=== PATIENT | female | born 1970 | race Caucasian/White ===

== ENCOUNTER 2018-05-22 17:59 | Inpatient (IN) | payer OTHER ==
[~2018-05-22] VITALS: Ht 172.7 cm; Wt 75.3 kg
--- OUTSIDE RECORDS SUMMARY | 2018-05-22 18:02 | XMS REPORT | Continuity of Care Document ---
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 No 04/07/18 6:54pm Chief Complaint and Reason for Visit Chief Complaint Altered Mental Status Reason for Visit Hypoglycemia Altered mental status Pneumonia Problems Medical Problem Onset Date Status Fracture of left radius and ulna Unknown Acute Sprain of right knee Unknown Acute Traumatic hematoma of right knee Unknown Acute Left arm swelling Unknown Stage I decubitus ulcer and pressure area Unknown Past Problems Medical Problem Onset Date Status DKA (diabetic ketoacidoses) Unknown Acute Hypoglycemia Unknown Acute IDDM (insulin dependent diabetes mellitus) Unknown Acute Hypochromic microcytic anemia Unknown Acute Hypoglycemia Unknown Resolved DKA (diabetic ketoacidoses) Unknown Acute IDDM (insulin dependent diabetes mellitus) Unknown Acute DKA (diabetic ketoacidoses) Unknown Acute Hyperglycemia Unknown Acute Hypoglycemia Unknown Acute Altered mental status Unknown Acute Pneumonia Unknown Acute Medications Current Home Medications Medication Dose Units Route Directions Days Qty Instructions Start Date Insulin Human Isoph/Insulin Regular (Novolin 70/30 (10 Ml Vial)) 10 Ml Vial 35 Unit Subcutaneous Twice A Day 1 Vial Insulin Human Regular (Humulin-R U-100 (10 Ml Vial)) 100 Unit/Ml Soln Unknown Dose Subcutaneous Sliding Scale 1 Vial Past Home Medications Medication Directions Ordered Status Acetaminophen/Codeine Phosphate (Tylenol #3) 1 Tab Tab, 1-2 Tab Oral Every 6 Hours 12/12/14 Discontinued Azithromycin (Zithromax) 250 Mg Tab, 250 Mg Oral Daily Discontinued Cephalexin (Keflex) 250 Mg Cap, 250 Mg Oral Every 8 Hours 12/12/14 Discontinued Ibuprofen (Advil) 200 Mg Tab, 200 Mg Oral As Needed Discontinued Insulin Detemir (Levemir Inj) 100 U/Ml Vial, 25 Unit Subcutaneous Bedtime Discontinued Insulin Glargine (Lantus Inj) 100 Unit/Ml Soln, 50 Unit Subcutaneous Bedtime Discontinued Insulin Human Isoph/Insulin Regular (Novolin 70/30 (10 Ml Vial)) 10 Ml Vial, 50 Unit Subcutaneous Twice A Day Discontinued Insulin Human Isoph/Insulin Regular (Humulin 70/30 (3 Ml Vial)) 100 Unit/Ml Susp, 40 UnitSubcutaneous Twice A Day Discontinued Insulin Human Regular (Novolin-R (10 Ml Vial)) 100 U/Ml Vial, 28 Unit Subcutaneous Daily Before Breakfast Discontinued Insulin Human Regular (Novolin-R (10 Ml Vial)) 100 U/Ml Vial, 20 Unit Subcutaneous Daily Before Dinner Discontinued Insulin Human Regular (Novolin-R (10 Ml Vial)) 100 U/Ml Vial, 50 Unit Subcutaneous Twice A Day Discontinued Insulin Human Regular (Novolin-R (10 Ml Vial)) 100 Unit/Ml Soln, 15 Unit Subcutaneous Twice A Day Discontinued Multivitamins Therapeutic (Theragenerix, Theragran) 1 Tab Tablet, 1 Tab Oral Daily Discontinued Social History Social History Problem Response Recorded Date/Time Onset Date Status Hx Tobacco Use No 04/07/2018 6:54pm Not Applicable Not Applicable Smoking Status Start Date Stop Date Never Smoker Hospital Discharge Instructions No hospital discharge instruction information available. Plan of Care Discharge Date 04/07/18 7:39pm Disposition SHORT TERM ACUTE HOSP 02 Condition at Discharge Critical Forms Provided Procedures & Tests Performed Work/School Release Prescriptions See Medication Section Referrals MARA FRANCIS MD Address: [address] [place] [id number] Note: Functional Status Query Response Date Recorded Onset Within the Last 7 Days Cognitive Decline Problem Comprehending Decline in ADL Decline in Funct Mobility April 07, 2018 6:54pm Allergies, Adverse Reactions, Alerts Allergen Type Severity Reaction Status Last Updated Sulfonamide Allergy Unknown Active 01/06/13 Immunizations Query Response on File Recorded Date/Time HX of Pneumococcal Vaccine No 04/07/18 6:54pm Date Pneumovax Given 08/05/16 9:58am HX of Influenza Vaccine No 04/07/18 6:54pm Date Influenza Given 08/201104/07/18 6:54pm Tetanus Status Unknown 04/07/18 6:54pm Hx Hepatitis A Vaccination Not Vaccinated 08/02/16 10:02am Hx Hepatitis B Vaccination None 08/02/16 10:02am Vital Signs Acute Vital Signs Vital Response Date/Time Temperature (Fahrenheit) 100.2 degrees F (97.6 - 99.5) 04/07/2018 7:53pm Pulse Rate (adult) 107 bpm (60 - 100) 04/07/2018 7:18pm Pulse Rate 107 bpm 04/07/2018 7:53pm Respiratory Rate 16 breaths per minute (12 - 24) 04/07/2018 7:18pm Respiratory Rate 16 breaths per minute 04/07/2018 7:53pm Blood Pressure Systolic 105 mm Hg (100 - 140) 04/07/2018 7:18pm Blood Pressure Systolic 105 mm Hg 04/07/2018 7:53pm Blood Pressure Diastolic 63 mm Hg (60 - 90) 04/07/2018 7:18pm Blood Pressure Diastolic 63 mm Hg 04/07/2018 7:53pm Height 5 ft 7 in 04/07/2018 4:56pm Weight 165 lb 04/07/2018 4:56pm Body Mass Index 25.8 kg/m^2 04/07/2018 4:56pm Results Laboratory Results Test Name Result Units Flags Reference Collection Date/Time Result Date/Time Comments White Blood Count 17.8 10*3/uL H 4.5-11.5 04/07/2018 5:45pm 04/07/2018 5:56pm Red Blood Count 3.39 10*6/uL L 3.8-5.1 04/07/2018 5:45pm 04/07/2018 5:56pm Hemoglobin 7.2 g/dL L 12.0-15.2 04/07/2018 5:45pm 04/07/2018 5:56pm Hematocrit 24.2 % L 34.0-45.5 04/07/2018 5:45pm 04/07/2018 5:56pm Mean Corpuscular Volume 71.4 fL L 80-94 04/07/2018 5:45pm 04/07/2018 5:56pm Mean Corpuscular Hemoglobin 21.2 pg L 27.0-33.0 04/07/2018 5:45pm 04/07/2018 5:56pm Mean Corpuscular Hemoglobin Concent 29.8 g/dL L 33.0-37.0 04/07/2018 5:45pm 04/07/2018 5:56pm Red Cell Distribution Width 22.4 % H 10.7-14.5 04/07/2018 5:45pm 04/07/2018 5:56pm Platelet Count 808 10*3/uL H 150-450 04/07/2018 5:45pm 04/07/2018 5:56pm Mean Platelet Volume 7.9 fL 5.7-10.7 04/07/2018 5:45pm 04/07/2018 5:56pm Manual Differential ----- 04/07/2018 5:45pm 04/07/2018 5:56pm Neutrophils % (Manual) 88 % H 42-75 04/07/2018 5:45pm 04/07/2018 6:12pm Band Neutrophils % (Manual) 7 % 5-11 04/07/2018 5:45pm 04/07/2018 6:12pm Lymphocytes % (Manual) 4 % L 21-51 04/07/2018 5:45pm 04/07/2018 6:12pm Monocytes % (Manual) 1 % 1-9 04/07/2018 5:45pm 04/07/2018 6:12pm Platelet Estimate Increased 04/07/2018 5:45pm 04/07/2018 6:12pm Anisocytosis 2+ 04/07/2018 5:45pm 04/07/2018 6:12pm Microcytosis 2+ 04/07/2018 5:45pm 04/07/2018 6:12pm Hypochromasia 2+ 04/07/2018 5:45pm 04/07/2018 6:12pm Urine Source URINE 04/07/2018 5:00pm 04/07/2018 5:49pm Urine Color Lt Hunter Yel-Shalini * 04/07/2018 5:00pm 04/07/2018 5:53pm Urine Appearance Light Turbid Clear * 04/07/2018 5:00pm 04/07/2018 5:53pm Urine pH 6.5 5.0-8.0 04/07/2018 5:00pm 04/07/2018 5:53pm Urine Specific [place] 1.007 1.005-1.030 04/07/2018 5:00pm 04/07/2018 5:53pm Urine Protein 10 mg/dL H Negative * 04/07/2018 5:00pm 04/07/2018 5:53pm Urine Glucose (UA) Negative mg/dL Negative * 04/07/2018 5:00pm 04/07/2018 5:53pm Urine Ketones Negative mg/dL Negative * 04/07/2018 5:00pm 04/07/2018 5:53pm Urine Occult Blood 3+ H Negative * 04/07/2018 5:00pm 04/07/2018 5:53pm Urine Nitrite Negative Negative 04/07/2018 5:00pm 04/07/2018 5:53pm Urine Bilirubin Negative mg/dL Negative 04/07/2018 5:00pm 04/07/2018 5:53pm Urine Urobilinogen Negative mg/dL 0.0-1.0 04/07/2018 5:00pm 04/07/2018 5:53pm Urine Leukocyte Esterase 500 Ho/uL H Negative 04/07/2018 5:00pm 04/07/2018 5:53pm Urine RBC >40 /HPF H 0-2 04/07/2018 5:00pm 04/07/2018 6:08pm Urine WBC >50 /HPF H 0-5 04/07/2018 5:00pm 04/07/2018 6:08pm Urine Epithelial Cells None Seen /HPF Few 04/07/2018 5:00pm 04/07/2018 6:08pm Urine Crystals None Seen /HPF None * 04/07/2018 5:00pm 04/07/2018 6:08pm Urine Bacteria Packed /HPF A None 04/07/2018 5:00pm 04/07/2018 6:08pm Urine Casts None Seen /LPF None * 04/07/2018 5:00pm 04/07/2018 6:08pm Urine Yeast None Seen /HPF None 04/07/2018 5:00pm 04/07/2018 6:08pm Urinalysis Comment * * 04/07/2018 5:00pm 04/07/2018 5:53pm Ref Range=* Clinical evaluation required. Urine Culture Indicated To follow A 04/07/2018 5:00pm 04/07/2018 6:08pm Sodium Level 139 mmol/L 136-145 04/07/2018 5:00pm 04/07/2018 5:41pm Potassium Level 4.9 mmol/L 3.5-5.1 04/07/2018 5:00pm 04/07/2018 5:41pm Chloride Level 102 mmol/L 98-107 04/07/2018 5:00pm 04/07/2018 5:41pm Carbon Dioxide Level 23 mmol/L 21-32 04/07/2018 5:00pm 04/07/2018 5:41pm Anion Gap 19 H 5-14 04/07/2018 5:00pm 04/07/2018 5:41pm Blood Urea Nitrogen 15 mg/dL 6-20 04/07/2018 5:00pm 04/07/2018 5:41pm Creatinine 0.9 mg/dL 0.6-1.3 04/07/2018 5:00pm 04/07/2018 5:41pm Estimat Glomerular Filtration Rate 72 L 73-125 04/07/2018 5:00pm 04/07/2018 5:41pm Stages of Patients with Estimated GFR Known Kidney Disease (ml/min/1.73 sq.meters) Stage 1 - Kidney damage w/normal 90 mL/min or greater or increased GFR Stage 2 - Kidney disease w/mildly 60-89 mL/min decreased GFR Stage 3 - Moderately decreased GFR 30-59 mL/min Stage 4 - Severely decreased GFR 15-29 mL/min Stage 5 - Kidney failure 14 mL/min or less To estimate the GFR for Americans, multiply the result provided by 1.21. BUN/Creatinine Ratio 17 04/07/2018 5:00pm 04/07/2018 5:41pm Glucose Level 73 mg/dL 60-100 04/07/2018 5:00pm 04/07/2018 5:41pm Calculated Osmolality 277 mOsm/kg 04/07/2018 5:00pm 04/07/2018 5:41pm Calcium Level 9.0 mg/dL 8.5-10.1 04/07/2018 5:00pm 04/07/2018 5:41pm B-Type Natriuretic Peptide 482 pg/mL H 0-99 04/07/2018 5:00pm 04/07/2018 6:05pm A cutoff of 100 pg/ml has been demonstrated to provide the maximal combination of sensitivity, specificity, and negative predictive value for contributing to the diagnosis of congestive heart failure. A BNP value greater than or equal to 100 pg/ml is consistent with a diagnosis of CHF in the appropriate clinical setting. Thyroid Stimulating Hormone (TSH) 2.08 uIU/mL 0.40-4.20 04/07/2018 5:00pm 04/07/2018 5:41pm Bedside Troponin I 0.00 ng/mL 0.00-0.07 04/07/2018 4:51pm 04/07/2018 5:02pm Bedside Lactic Acid Venous 3.93 mmol/L CH 0.50-2.20 04/07/2018 4:54pm 04/07/2018 5:00pm Critical value reported at bedside. POC testing performed at the bedside. Immediate notification of results given to nurse/physician at time of testing. Lactic Acid Comment Reprint/Called 04/07/2018 6:48pm 04/07/2018 6:50pm Reprint / Called to FRANCIE MONROE at 1849 on 04/07/18 by [id number]. Bedside Glucose 69 mg/dL 60-100 04/07/2018 7:14pm 04/07/2018 7:16pm FiO2 100 % 04/07/2018 4:53pm 04/07/2018 6:21pm Arterial Blood pH 7.56 CH 7.35-7.45 04/07/2018 4:53pm 04/07/2018 6:21pm Critical value: Called to at 181 on 04/07/18 by [id number]. Result read-back successful. Arterial Blood Partial Pressure CO2 25 mmHg L 35-45 04/07/2018 4:53pm 04/07/2018 6:21pm Arterial Blood Partial Pressure O2 171 mmHg CH 80-100 04/07/2018 4:53pm 04/07/2018 6:21pm Critical value: Called to at 1819 on 04/07/18 by [id number]. Result read-back successful. Arterial Blood HCO3 25 mmHg 22-26 04/07/2018 4:53pm 04/07/2018 6:21pm Arterial Blood Base Excess 1 mmol/L -2-2 04/07/2018 4:53pm 04/07/2018 6:21pm Arterial Blood Oxygen Saturation 100 % 90-100 04/07/2018 4:53pm 04/07/2018 6:21pm Oxygen Delivery Device NON REBREATHER 04/07/2018 4:53pm 04/07/2018 6:21pm Blood Gas Puncture Site Left Brachial 04/07/2018 4:53pm 04/07/2018 6:21pm Kostas Test Pass 04/07/2018 4:53pm 04/07/2018 6:21pm Procedures Procedure Status Date Provider(s) Computed tomography of head or brain without contrast Completed 04/07/18 PRINCESS PETTY MD X-ray of chest, single view Completed 04/07/18 PRINCESS PETTY MD ECG (electrocardiogram) Active 04/07/18 PRINCESS PETTY MD X-ray of chest, single view Completed 04/07/18 PRINCESS PETTY MD Arterial puncture Completed 04/07/18 PRINCESS PETTY MD Encounters Encounter Location Arrival/Admit Date Discharge/Depart Date Attending Provider Departed Emergency Room [facility] 04/07/18 4:38pm 04/07/18 7:39pm CALI SAUL MD Recent Diagnosis Hypoglycemia Altered mental status
--- OUTSIDE RECORDS SUMMARY | 2018-05-22 18:02 | XMS REPORT ---
Author Author [facility] Address Unknown Phone Unavailable Care Team Providers Care Dermatologist Managing Partner Name Role Phone BLAS BLACK Unavailable Unavailable Problems This patient has no known problems. Allergies, Adverse Reactions, Alerts This patient has no known allergies or adverse reactions. Medications This patient has no known medications. Results Test Description Test Time Test Comments Text Results Atomic Results Result Comments CULTURE, BLOOD 2017-11-10 08:20:00 To start 15mins after 1st culture Specimen: BloodCollected: 11/04/2017 20:15 Status: Final Last Updated: 11/10/2017 08:19 (1) To start 15mins after 1st culture Culture Result (Final) (Final) No Growth After 5 Days CULTURE, BLOOD 2017-11-10 08:20:00 Specimen: BloodCollected: 11/04/2017 20:07 Status: Final Last Updated: 11/10/2017 08:19 Culture Result (Final) (Final) No Growth After 5 Days CULTURE, URINE 2017-11-07 07:25:00 Specimen: Urine SpecimensCollected: 11/05/2017 00:50 Status: Final Last Updated: 11/06/2017 22:06 Culture Result (Final) (Final) >100,000 cc/mL Streptococcus species Many Mixed Body Gracie Isolated Isolate (Final) (Final) Streptococcus agalactiae Ampicillin <=0.25 S Penicillin <=0.06 S Ceftriaxone <=0.12 S Clindamycin <=0.25 S ICR Negative - Levofloxacin 1 S Linezolid <=2 S Moxifloxacin 0.12 S Tetracycline >=16 R Tigecycline <=0.06 S Vancomycin 0.5 S CBC WITH AUTO DIFF 2017-11-06 05:45:00 WBC (test code=WBC) 6.02 10\\S\\3/ul 4.80-10.80 RBC (test code=RBC) 3.61 10\\S\\6/ul 4.20-5.40 Hemoglobin (test code=HGB) 7.2 gm/dl 12.0-14.0 Hematocrit (test code=HCT) 25.9 % 37.0-47.0 MCV (test code=MCV) 71.7 fL 81.0-99.0 MCH (test code=MCH) 19.9 pg 27.0-31.0 MCHC (test code=MCHC) 27.8 gm/dl 33.0-37.0 RDW (test code=RDWVC) 21.0 % 11.5-14.5 Platelet (test code=PLT) 281 10\\S\\3/ul 130-400 MPV (test code=MPV) 9.6 fL 7.4-10.4 "NOT MEASURED" RESULTS ARE DISPLAYED WHEN THE INSTRUMENT HAS A SUPPRESSED OR UNREPORTABLE RESULT. THIS WILL MOST OFTEN HAPPEN WITH THE MPV WHEN THERE IS AN ABNORMAL PLATELET DISTRIBUTION DUE TO A CR ITICAL LOW VALUE OR PLATELET CLUMPING. THE RDW MAY BE SUPPRESSED IF THERE ARE MULTIPLE PEAKS PRESENT ON THE RBC HISTOGRAM. IN THIS CASE, A MANUAL REVIEW OF THE SLIDE WILL BE PERFORMED, AND RBC MORPHOLOGY WILL BE NOTED ON THE REPORT. NE% (test code=NE) 55.2 % 42.0-75.0 LY% (test code=LY) 30.1 % 13.0-42.0 MO% (test code=MO) 11.6 % 4.0-14.0 EO% (test code=EO) 1.8 % 1.0-3.0 BA% (test code=BA) 1.0 % 1.0-3.0 IG% (test code=IG%) 0.3 % 0.0-0.4 Critical values were called to John Mckeon\\ICU by [id number] on 11/06/2017 05:45 AM. Results were read back by John Mckeon\\ICU. [id number] 05:41:00* Test Item Value Reference Range Comments Glucose (test code=GLU) 131 mg/dl 75-110 BUN (test code=BUN) 6.0 mg/dl 6.0-17.0 Creatinine (test code=CREA) 0.5 mg/dl 0.4-1.2 Sodium (test code=NA) 141 mmol/l 137-145 Potassium (test code=K) 3.7 mmol/l 3.5-5.0 Chloride (test code=CL) 113 mmol/l 98-107 CO2 (test code=CO2) 19 mmol/l 22-30 Calcium (test code=CALC) 8.7 mg/dl 8.4-10.2 EGFR if (test code=EGFRAA) >60 mL/min/1.73m\\S\\2 EGFR if Non- (test code=EGFRNA) >60 mL/min/1.73m\\S\\2 Estimated Glomerular Filtration Rate (eGFR) Reference Intervals Decision Points for 18 years and older and average body mass: >=60 Does not exclude kidney disease. 30 - 59 Suggests moderate chronic kidney disease and indicates the need for further investigation including assessment of proteinuria and cardiovascular factors. < 30 Usually indicates a need for referral for assessment and management of chronic kidney failure. [id number] 12:32:00* Test Item Value Reference Range Comments Glucose (test code=GLU) 149 mg/dl 75-110 BUN (test code=BUN) 7.0 mg/dl 6.0-17.0 Creatinine (test code=CREA) 0.5 mg/dl 0.4-1.2 Sodium (test code=NA) 142 mmol/l 137-145 Potassium (test code=K) 3.8 mmol/l 3.5-5.0 Chloride (test code=CL) 114 mmol/l 98-107 CO2 (test code=CO2) 16 mmol/l 22-30 Calcium (test code=CALC) 8.3 mg/dl 8.4-10.2 EGFR if (test code=EGFRAA) >60 mL/min/1.73m\\S\\2 EGFR if Non- (test code=EGFRNA) >60 mL/min/1.73m\\S\\2 Estimated Glomerular Filtration Rate (eGFR) Reference Intervals Decision Points for 18 years and older and average body mass: >=60 Does not exclude kidney disease. 30 - 59 Suggests moderate chronic kidney disease and indicates the need for further investigation including assessment of proteinuria and cardiovascular factors. < 30 Usually indicates a need for referral for assessment and management of chronic kidney failure. [id number] 10:03:00* Test Item Value Reference Range Comments Glucose (test code=GLU) 158 mg/dl 75-110 BUN (test code=BUN) 8.0 mg/dl 6.0-17.0 Creatinine (test code=CREA) 0.5 mg/dl 0.4-1.2 Sodium (test code=NA) 140 mmol/l 137-145 Potassium (test code=K) 4.0 mmol/l 3.5-5.0 Chloride (test code=CL) 114 mmol/l 98-107 CO2 (test code=CO2) 14 mmol/l 22-30 Calcium (test code=CALC) 8.1 mg/dl 8.4-10.2 EGFR if (test code=EGFRAA) >60 mL/min/1.73m\\S\\2 EGFR if Non- (test code=EGFRNA) >60 mL/min/1.73m\\S\\2 Estimated Glomerular Filtration Rate (eGFR) Reference Intervals Decision Points for 18 years and older and average body mass: >=60 Does not exclude kidney disease. 30 - 59 Suggests moderate chronic kidney disease and indicates the need for further investigation including assessment of proteinuria and cardiovascular factors. < 30 Usually indicates a need for referral for assessment and management of chronic kidney failure. [id number] 08:01:00* Test Item Value Reference Range Comments Glucose (test code=GLU) 142 mg/dl 75-110 BUN (test code=BUN) 9.0 mg/dl 6.0-17.0 Creatinine (test code=CREA) 0.5 mg/dl 0.4-1.2 Sodium (test code=NA) 140 mmol/l 137-145 Potassium (test code=K) 4.0 mmol/l 3.5-5.0 Chloride (test code=CL) 115 mmol/l 98-107 CO2 (test code=CO2) 14 mmol/l 22-30 Calcium (test code=CALC) 8.2 mg/dl 8.4-10.2 EGFR if (test code=EGFRAA) >60 mL/min/1.73m\\S\\2 EGFR if Non- (test code=EGFRNA) >60 mL/min/1.73m\\S\\2 Estimated Glomerular Filtration Rate (eGFR) Reference Intervals Decision Points for 18 years and older and average body mass: >=60 Does not exclude kidney disease. 30 - 59 Suggests moderate chronic kidney disease and indicates the need for further investigation including assessment of proteinuria and cardiovascular factors. < 30 Usually indicates a need for referral for assessment and management of chronic kidney failure. CBC WITH AUTO [id number] 06:53:00* Test Item Value Reference Range Comments WBC (test code=WBC) 7.61 10\\S\\3/ul 4.80-10.80 RBC (test code=RBC) 3.84 10\\S\\6/ul 4.20-5.40 Hemoglobin (test code=HGB) 7.5 gm/dl 12.0-14.0 Hematocrit (test code=HCT) 27.3 % 37.0-47.0 MCV (test code=MCV) 71.1 fL 81.0-99.0 MCH (test code=MCH) 19.5 pg 27.0-31.0 MCHC (test code=MCHC) 27.5 gm/dl 33.0-37.0 RDW (test code=RDWVC) 20.4 % 11.5-14.5 Platelet (test code=PLT) 336 10\\S\\3/ul 130-400 MPV (test code=MPV) 9.4 fL 7.4-10.4 "NOT MEASURED" RESULTS ARE DISPLAYED WHEN THE INSTRUMENT HAS A SUPPRESSED OR UNREPORTABLE RESULT. THIS WILL MOST OFTEN HAPPEN WITH THE MPV WHEN THERE IS AN ABNORMAL PLATELET DISTRIBUTION DUE TO A CR ITICAL LOW VALUE OR PLATELET CLUMPING. THE RDW MAY BE SUPPRESSED IF THERE ARE MULTIPLE PEAKS PRESENT ON THE RBC HISTOGRAM. IN THIS CASE, A MANUAL REVIEW OF THE SLIDE WILL BE PERFORMED, AND RBC MORPHOLOGY WILL BE NOTED ON THE REPORT. NE% (test code=NE) 57.6 % 42.0-75.0 LY% (test code=LY) 29.4 % 13.0-42.0 MO% (test code=MO) 10.4 % 4.0-14.0 EO% (test code=EO) 1.1 % 1.0-3.0 BA% (test code=BA) 1.1 % 1.0-3.0 IG% (test code=IG%) 0.4 % 0.0-0.4 Critical values were called to Khushbu Teague RN@0652 11/05/17 by [id number] on 2017 06:53 AM. Results were read back by Khushbu Teague RN@0652 11/05/17. BMP 2017-11-05 06:38:00* Test Item Value Reference Range Comments Glucose (test code=GLU) 136 mg/dl 75-110 BUN (test code=BUN) 10.0 mg/dl 6.0-17.0 Creatinine (test code=CREA) 0.5 mg/dl 0.4-1.2 Sodium (test code=NA) 142 mmol/l 137-145 Potassium (test code=K) 3.8 mmol/l 3.5-5.0 Chloride (test code=CL) 117 mmol/l 98-107 CO2 (test code=CO2) 16 mmol/l 22-30 Calcium (test code=CALC) 8.2 mg/dl 8.4-10.2 EGFR if (test code=EGFRAA) >60 mL/min/1.73m\\S\\2 EGFR if Non- (test code=EGFRNA) >60 mL/min/1.73m\\S\\2 Estimated Glomerular Filtration Rate (eGFR) Reference Intervals Decision Points for 18 years and older and average body mass: >=60 Does not exclude kidney disease. 30 - 59 Suggests moderate chronic kidney disease and indicates the need for further investigation including assessment of proteinuria and cardiovascular factors. < 30 Usually indicates a need for referral for assessment and management of chronic kidney failure. [id number] 04:34:00* Test Item Value Reference Range Comments Glucose (test code=GLU) 173 mg/dl 75-110 BUN (test code=BUN) 10.0 mg/dl 6.0-17.0 Creatinine (test code=CREA) 0.6 mg/dl 0.4-1.2 Sodium (test code=NA) 142 mmol/l 137-145 Potassium (test code=K) 4.3 mmol/l 3.5-5.0 Chloride (test code=CL) 116 mmol/l 98-107 CO2 (test code=CO2) 13 mmol/l 22-30 Calcium (test code=CALC) 8.3 mg/dl 8.4-10.2 EGFR if (test code=EGFRAA) >60 mL/min/1.73m\\S\\2 EGFR if Non- (test code=EGFRNA) >60 mL/min/1.73m\\S\\2 Estimated Glomerular Filtration Rate (eGFR) Reference Intervals Decision Points for 18 years and older and average body mass: >=60 Does not exclude kidney disease. 30 - 59 Suggests moderate chronic kidney disease and indicates the need for further investigation including assessment of proteinuria and cardiovascular factors. < 30 Usually indicates a need for referral for assessment and management of chronic kidney failure. [id number] 02:00:00* Test Item Value Reference Range Comments Glucose (test code=GLU) 166 mg/dl 75-110 BUN (test code=BUN) 11.0 mg/dl 6.0-17.0 Creatinine (test code=CREA) 0.6 mg/dl 0.4-1.2 Sodium (test code=NA) 140 mmol/l 137-145 Potassium (test code=K) 4.5 mmol/l 3.5-5.0 Chloride (test code=CL) 116 mmol/l 98-107 CO2 (test code=CO2) 11 mmol/l 22-30 Calcium (test code=CALC) 8.5 mg/dl 8.4-10.2 EGFR if (test code=EGFRAA) >60 mL/min/1.73m\\S\\2 EGFR if Non- (test code=EGFRNA) >60 mL/min/1.73m\\S\\2 Estimated Glomerular Filtration Rate (eGFR) Reference Intervals Decision Points for 18 years and older and average body mass: >=60 Does not exclude kidney disease. 30 - 59 Suggests moderate chronic kidney disease and indicates the need for further investigation including assessment of proteinuria and cardiovascular factors. < 30 Usually indicates a need for referral for assessment and management of chronic kidney failure. URINALYSIS WITH [id number] 01:35:00* Test Item Value Reference Range Comments Color (test code=UCOLR) YELLOW Clarity (test code=UCLAR) CLEAR Glucose (test code=UGLUC) 500 NEGATIVE Bilirubin (test code=UBILI) MODERATE NEGATIVE Ketones (test code=UKET) >=80 NEGATIVE Specific [place] (test code=USPGR) 1.025 1.005-1.030 Blood (test code=UBLD) SMALL NEGATIVE PH (test code=UPH) 6.0 4.5-8.0 Protein (test code=UPROT) 30 NEGATIVE Urobilinogen (test code=U UROB) 0.2 >0.2 Nitrite (test code=UNITR) NEGATIVE NEGATIVE Leukocyte Esterase (test code=ULEUK) SMALL NEGATIVE WBC (test code=WBCUR) TNTC 0-5 RBC (test code=RBCUR) 10-20 0-5 Epithial Cells (test code=U EPI) 20-30 0-10 Mucous (test code=UMUC) Small None Seen Bacteria (test code=UBACT) 1+ None Seen,Trace [id number] 23:53:00* Test Item Value Reference Range Comments Glucose (test code=GLU) 148 mg/dl 75-110 BUN (test code=BUN) 12.0 mg/dl 6.0-17.0 Creatinine (test code=CREA) 0.6 mg/dl 0.4-1.2 Sodium (test code=NA) 141 mmol/l 137-145 Potassium (test code=K) 4.1 mmol/l 3.5-5.0 Chloride (test code=CL) 115 mmol/l 98-107 CO2 (test code=CO2) 10 mmol/l 22-30 Calcium (test code=CALC) 8.7 mg/dl 8.4-10.2 EGFR if (test code=EGFRAA) >60 mL/min/1.73m\\S\\2 EGFR if Non- (test code=EGFRNA) >60 mL/min/1.73m\\S\\2 Estimated Glomerular Filtration Rate (eGFR) Reference Intervals Decision Points for 18 years and older and average body mass: >=60 Does not exclude kidney disease. 30 - 59 Suggests moderate chronic kidney disease and indicates the need for further investigation including assessment of proteinuria and cardiovascular factors. < 30 Usually indicates a need for referral for assessment and management of chronic kidney failure. CBC WITH AUTO [id number] 21:32:00* Test Item Value Reference Range Comments WBC (test code=WBC) 12.51 10\\S\\3/ul 4.80-10.80 RBC (test code=RBC) 4.42 10\\S\\6/ul 4.20-5.40 Hemoglobin (test code=HGB) 8.5 gm/dl 12.0-14.0 Hematocrit (test code=HCT) 31.3 % 37.0-47.0 MCV (test code=MCV) 70.8 fL 81.0-99.0 MCH (test code=MCH) 19.2 pg 27.0-31.0 MCHC (test code=MCHC) 27.2 gm/dl 33.0-37.0 RDW (test code=RDWVC) 20.3 % 11.5-14.5 Platelet (test code=PLT) 479 10\\S\\3/ul 130-400 MPV (test code=MPV) 9.3 fL 7.4-10.4 "NOT MEASURED" RESULTS ARE DISPLAYED WHEN THE INSTRUMENT HAS A SUPPRESSED OR UNREPORTABLE RESULT. THIS WILL MOST OFTEN HAPPEN WITH THE MPV WHEN THERE IS AN ABNORMAL PLATELET DISTRIBUTION DUE TO A CR ITICAL LOW VALUE OR PLATELET CLUMPING. THE RDW MAY BE SUPPRESSED IF THERE ARE MULTIPLE PEAKS PRESENT ON THE RBC HISTOGRAM. IN THIS CASE, A MANUAL REVIEW OF THE SLIDE WILL BE PERFORMED, AND RBC MORPHOLOGY WILL BE NOTED ON THE REPORT. NE% (test code=NE) 79.7 % 42.0-75.0 LY% (test code=LY) 13.3 % 13.0-42.0 MO% (test code=MO) 5.8 % 4.0-14.0 EO% (test code=EO) 0.0 % 1.0-3.0 BA% (test code=BA) 0.6 % 1.0-3.0 IG% (test code=IG%) 0.6 % 0.0-0.4 RBC Morphology (test code=RBCMOR) Anisocytosis Microcytic 1+Polychromic Slight The value no value originally released by on ############### was changed to Anisocytosis Microcytic 1+ Polychromic Slight by [id number] on 11/04/2017 21:32 Platelet Morphology (test code=PLTMORPH) Increased platelets Giant platelets The value no value originally released by on ############### was changed to Increased platelets Giant platelets by [id number] on 11/04/2017 21:32 [id number] 21:32:00* Test Item Value Reference Range Comments aPTT (test code=PTT) 22.2 seconds 23.0-33.0 PT AND [id number] 21:32:00* Test Item Value Reference Range Comments Protime (test code=PT) 9.7 seconds 9.0-11.9 INR (test code=INR) 0.9 0.9-1.1 INR results are intended ONLY to monitor Oral Anticoagulant therapy in stablized patients. The INR Therapeutic Range is 2.0 - 3.0 Patients with a mechanical heart, the INR Range is 2.5 - 3.5 LIPASE, [id number] 21:23:00* Test Item Value Reference Range Comments Lipase (test code=LIPA) 42 U/L 8-223 TROPONIN-I [id number] 21:23:00* Test Item Value Reference Range Comments Troponin-I (test code=TROP) <0.012 ng/ml 0.000-0.034 The 99th Percentile URL is 0.034 ng/mL. The Joint Society of Cardiology/[place] College [employer] Card[employer] (ESC/ACC) and the National Academy of Clinical Biochemistry Standards of Laboratory Practices (NACB) recommends that the diagnosis of AMI includes the presence of clinical history suggestive of Acute Coronary Syndrome (ACS) and a maximum concentration of cardiac troponin exceeding the 99th percentile of a normal reference population [upper reference limit (URL)] on at least one occasion during the first 24 hours after the clinical event. MYOGLOBIN, [id number] 21:23:00* Test Item Value Reference Range Comments Myoglobin (test code=MICKIE) 36.1 ng/ml 0.0-61.5 [id number] 21:07:00* Test Item Value Reference Range Comments Glucose (test code=GLU) 147 mg/dl 75-110 BUN (test code=BUN) 13.0 mg/dl 6.0-17.0 Creatinine (test code=CREA) 0.7 mg/dl 0.4-1.2 Sodium (test code=NA) 140 mmol/l 137-145 Potassium (test code=K) 4.7 mmol/l 3.5-5.0 Chloride (test code=CL) 112 mmol/l 98-107 CO2 (test code=CO2) 9 mmol/l 22-30 Calcium (test code=CALC) 9.5 mg/dl 8.4-10.2 T Protein (test code=TP) 8.0 gm/dl 5.1-8.7 Albumin (test code=ALB) 4.2 gm/dl 3.5-4.6 A/G Ratio (test code=AGRAT) 1.1 % 1.1-2.2 AST (SGOT) (test code=AST) 15 U/L 11-36 ALT (SGPT) (test code=ALT) 15 U/L 11-40 Alkaline Phos (test code=ALKP) 94 U/L 47-114 Total Bilirubin (test code=TBIL) 0.3 mg/dl 0.2-1.2 Globulin (test code=GLOBU) 3.8 gm/dl 2.3-3.5 Calcium, Corrected (test code=CALCCORR) 9.3 mg/dl 8.4-10.2 Various formulas exist for corrected serum calcium results, each yielding different values. This corrected result was based on the formula: Corrected Calcium=SerumCalcium + [0.8 * ( 4 - SerumAlbumin)] EGFR if (test code=EGFRAA) >60 mL/min/1.73m\\S\\2 EGFR if Non- (test code=EGFRNA) >60 mL/min/1.73m\\S\\2 Estimated Glomerular Filtration Rate (eGFR) Reference Intervals Decision Points for 18 years and older and average body mass: >=60 Does not exclude kidney disease. 30 - 59 Suggests moderate chronic kidney disease and indicates the need for further investigation including assessment of proteinuria and cardiovascular factors. < 30 Usually indicates a need for referral for assessment and management of chronic kidney failure. Critical values were called to CHRITSIE MUNOZ RN ICU by [id number] on 11/04/2017 21:07 PM. Results were read back by CHRISTIE MUNOZ RN ICU. [id number] 21:07:00* Test Item Value Reference Range Comments Magnesium (test code=MG) 2.2 mg/dl 1.6-2.3 CORONARY [id number] 21:07:00* Test Item Value Reference Range Comments Triglycerides (test code=TRIG) 96 mg/dl 0-149 Trig. Interpretation Guide: Normal: < 150 mg/dl Borderline High: 150 - 199 mg/dl High: 200 - 499 mg/dl Very High: >=500 mg/dl Cholesterol (test code=CHOL) 177 mg/dl 0-198 HDL (test code=HDL) 70 mg/dl 35-86 dLDL (test code=DILDL) 98 mg/dl 0-99 Direct LDL Intrepretations: Optimal: <100 mg/dl Suspect: 100 - 129 mg/dl Borderline: 130 - 159 mg/dl High: 160 - 189 mg/dl Very High: >190 mg/dl Risk Factor (test code=RFACT) 2.5 0.0-4.4 Risk Factor Men Women Risk Factor 3.4 3.3 1/2 Average 5.0 4.4 Average 9.6 7.1 2X Average 24.0 11.0 3X Average vLDL (test code=VLDL) 19 mg/dl 20-40 GLYCOSALATED [id number] 21:01:00* Test Item Value Reference Range Comments Hemoglobin A1C (test code=GLYCO) 11.2 % 4.3-6.0 Mean Plasma Glucose (test code=MPG) 321 mg/dl 90-180 WHEN TEST RESULTS FOR A1C EXCEED 14.0, THE LINEAR LIMIT OF THE INSTRUMENT, THE CALCULATED RESULT FOR THE MEAN GLUCOSE IS NOT RELIABLE. LACTIC ACID [id number] 21:00:00* Test Item Value Reference Range Comments LACTATE (test code=LAC) 1.2 mmol/l 0.7-2.0 [id number] 21:00:00* Test Item Value Reference Range Comments CPK (test code=CPK) 48 U/L 30-135
--- OUTSIDE RECORDS SUMMARY | 2018-05-22 18:02 | XMS REPORT | Continuity of Care Document ---
Author Author [facility] Organization [facility] Address [address] [place] [address] ;ext= Care Team Providers Care Landscaper Name Role Phone TARSUSYSADE BLAS Admphys TARAPASADE, BLAS Attphys Hospital Admission Diagnosis Code Admission Diagnosis Date [id number] Ketoacidosis in type I diabetes mellitus Social History Element Description Code Description Smoking Status Code System Start Date End Date Smoking Status 704997252 Never smoker SNOMED-CT Problems * No data in the system Medications RxNorm Medication Dose Route Instructions Indications Start Date End Date Status 480847 Ciprofloxacin 500 MG Oral Tablet 500 milligram Oral orally every 12 hours (5 days) Active 8247342 insulin, isophane 35 unit Subcutaneous subcutaneously 2 times per day (administer 30-60 minutes before breakfast and supper;) Active novolin r sliding scale Subcutaneous subcutaneously before meals (pt unsure of sliding scale parameters) Active Allergies Code Code System Allergy Substance Type Reaction Severity Start Date End Date Status 73827 RXNorm Sulfa(Sulfonamide Antibiotics) Drug allergy Unknown Active Results Laboratory Results Order: BMP BASIC METABOLIC PANEL LOINC Test Result Flag Range Unit Date 1Glucose 131 H 75-110 mg/dl 11/06/2017 04:49 1BUN 6 6.0-17.0 mg/dl 11/06/2017 04:49 1Creatinine 0.5 0.4-1.2 mg/dl 11/06/2017 04:49 1Sodium 141 137-145 mmol/l 11/06/2017 04:49 1Potassium 3.7 3.5-5.0 mmol/l 11/06/2017 04:49 1Chloride 113 H 98-107 mmol/l 11/06/2017 04:49 1CO2 19 L 22-30 mmol/l 11/06/2017 04:49 1Calcium 8.7 8.4-10.2 mg/dl 11/06/2017 04:49 1EGFR if >60 mL/min/1.73m^2 11/06/2017 04:49 1EGFR if Non- >60 mL/min/1.73m^2 11/06/2017 04:49 Note: Estimated Glomerular Filtration Rate (eGFR) Reference Intervals Decision Points for 18 years and older and average body mass: >=60 Does not exclude kidney disease. 30 - 59 Suggests moderate chronic kidney disease and indicates the need for further investigation including assessment of proteinuria and cardiovascular factors. < 30 Usually indicates a need for referral for assessment and management of chronic kidney failure. * Performing Lab Footnotes:* [address] [place] [address] - [id number] - [address] [facility] [address] [place] [address] [place] - MD: DIRECTOR SINTIA SÁNCHEZ Order: CBC PLATELET AUTO DIFF LOINC Test Result Flag Range Unit Date 20992-3 1Leukocytes^^corrected for nucleated erythrocytes:NCnc:Pt:Bld:Qn:Automated count 6.02 4.80-10.80 10^3/ul 11/06/2017 04:49 789-8 1Erythrocytes:NCnc:Pt:Bld:Qn:Automated count 3.61 L 4.20-5.40 10^6/ul 11/06/2017 04:49 718-7 1Hemoglobin:MCnc:Pt:Bld:Qn 7.2 LL 12.0-14.0 gm/dl 11/06/2017 04:49 4544-3 1Hematocrit:VFr:Pt:Bld:Qn:Automated count 25.9 L 37.0-47.0 % 11/06/2017 04:49 787-2 1Erythrocyte mean corpuscular volume:EntVol:Pt:RBC:Qn:Automated count 71.7 L 81.0-99.0 fL 11/06/2017 04:49 785-6 1Erythrocyte mean corpuscular hemoglobin:EntMass:Pt:RBC:Qn:Automated count 19.9 L 27.0-31.0 pg 11/06/2017 04:49 786-4 1Erythrocyte mean corpuscular hemoglobin concentration:MCnc:Pt:RBC:Qn:Automated count 27.8 L 33.0-37.0 gm/dl 11/06/2017 04:49 788-0 1Erythrocyte distribution width:Ratio:Pt:RBC:Qn:Automated count 21 H 11.5-14.5 % 11/06/2017 04:49 777-3 1Platelets:NCnc:Pt:Bld:Qn:Automated count 281 130-400 10^3/ul 11/06/2017 04:49 42440-2 1Platelet mean volume:EntVol:Pt:Bld:Qn:Automated count 9.6 A 7.4-10.4 fL 11/06/2017 04:49 Note: 'NOT MEASURED' RESULTS ARE DISPLAYED WHEN THE INSTRUMENT HAS A SUPPRESSED OR UNREPORTABLE RESULT. THIS WILL MOST OFTEN HAPPEN WITH THE MPV WHEN THERE IS AN ABNORMAL PLATELET DISTRIBUTION DUE TO A CRITICAL LOW VALUE OR PLATELET CLUMPING. THE RDW MAY BE SUPPRESSED IF THERE ARE MULTIPLE PEAKS PRESENT ON THE RBC HISTOGRAM. IN THIS CASE, A MANUAL REVIEW OF THE SLIDE WILL BE PERFORMED, AND RBC MORPHOLOGY WILL BE NOTED ON THE REPORT. 770-8 1Neutrophils/100 leukocytes:NFr:Pt:Bld:Qn:Automated count 55.2 42.0-75.0 % 11/06/2017 04:49 736-9 1Lymphocytes/100 leukocytes:NFr:Pt:Bld:Qn:Automated count 30.1 13.0-42.0 % 11/06/2017 04:49 5905-5 1Monocytes/100 leukocytes:NFr:Pt:Bld:Qn:Automated count 11.6 4.0-14.0 % 11/06/2017 04:49 713-8 1Eosinophils/100 leukocytes:NFr:Pt:Bld:Qn:Automated count 1.8 1.0-3.0 % 11/06/2017 04:49 706-2 1Basophils/100 leukocytes:NFr:Pt:Bld:Qn:Automated count 1 1.0-3.0 % 11/06/2017 04:49 1IG% 0.3 0.0-0.4 % 11/06/2017 04:49 * Performing Lab Footnotes:* [address] [place] [address] - [id number] - [address] [facility] [address] [facility] [address] [facility] - MD: DIRECTOR SINTIA SÁNCHEZ Order: CULTURE URINE COLONY COUNT LOINC Test Result Flag Range Unit Date Specimen: Urine Specimens 11/05/2017 00:50 Collected: 11/05/2017 00:50 11/05/2017 00:50 11/05/2017 00:50 Status: Final Last Updated: 11/06/2017 22:06 11/05/2017 00:50 11/05/2017 00:50 11/05/2017 00:50 Culture Result (Final) (Final) 11/05/2017 00:50 >100,000 cc/mL Streptococcus species 11/05/2017 00:50 Many Mixed Body Gracie Isolated 11/05/2017 00:50 11/05/2017 00:50 Isolate (Final) (Final) 11/05/2017 00:50 Streptococcus agalactiae 11/05/2017 00:50 Ampicillin <=0.25 S 11/05/2017 00:50 Penicillin <=0.06 S 11/05/2017 00:50 Ceftriaxone <=0.12 S 11/05/2017 00:50 Clindamycin <=0.25 S 11/05/2017 00:50 ICR Negative - 11/05/2017 00:50 Levofloxacin 1 S 11/05/2017 00:50 Linezolid <=2 S 11/05/2017 00:50 Moxifloxacin 0.12 S 11/05/2017 00:50 Tetracycline >=16 R 11/05/2017 00:50 Tigecycline <=0.06 S 11/05/2017 00:50 Vancomycin 0.5 S 11/05/2017 00:50 11/05/2017 00:50 11/05/2017 00:50 Order: UA URINALYSIS WITH MICROSCOPY LOINC Test Result Flag Range Unit Date 5778-6 1Color:Type:Pt:Urine:Nom YELLOW 11/05/2017 00:50 5767-9 1Appearance:Aper:Pt:Urine:Nom CLEAR 11/05/2017 00:50 2349-9 1Glucose:ACnc:Pt:Urine:Ord 500 A NEGATIVE 11/05/2017 00:50 5770-3 1Bilirubin:ACnc:Pt:Urine:Ord:Test strip MODERATE A NEGATIVE 11/05/2017 00:50 2514-8 1Ketones:ACnc:Pt:Urine:Ord:Test strip >=80 A NEGATIVE 11/05/2017 00:50 5811-5 1Specific gravity:Rden:Pt:Urine:Qn:Test strip 1.025 A 1.005-1.030 11/05/2017 00:50 5794-3 1Hemoglobin:ACnc:Pt:Urine:Ord:Test strip SMALL A NEGATIVE 11/05/2017 00:50 5803-2 1pH:LsCnc:Pt:Urine:Qn:Test strip 6.0 A 4.5-8.0 11/05/2017 00:50 91784-2 1Protein:ACnc:Pt:Urine:Ord:Test strip 30 A NEGATIVE 11/05/2017 00:50 5818-0 1Urobilinogen:ACnc:Pt:Urine:Ord:Test strip 0.2 0.2 11/05/2017 00:50 5802-4 1Nitrite:ACnc:Pt:Urine:Ord:Test strip NEGATIVE NEGATIVE 11/05/2017 00:50 5799-2 1Leukocyte esterase:ACnc:Pt:Urine:Ord:Test strip SMALL A NEGATIVE 11/05/2017 00:50 5821-4 1Leukocytes:Naric:Pt:Urine sed:Qn:Microscopy.light.HPF TNTC A 0-5 11/05/2017 00:50 64225-6 1Erythrocytes:Naric:Pt:Urine sed:Qn:Microscopy.light.HPF 10-20 A 0-5 11/05/2017 00:50 11003-5 1Epithelial cells.squamous:Naric:Pt:Urine sed:Qn:Microscopy.light.HPF 20-30 A 0-10 11/05/2017 00:50 8247-9 1Mucus:ACnc:Pt:Urine sed:Ord:Microscopy.light Small A None Seen 11/05/2017 00:50 5769-5 1Bacteria:Naric:Pt:Urine sed:Qn:Microscopy.light.HPF 1+ A None Seen,Trace 11/05/2017 00:50 * Performing Lab Footnotes:* [address] [place] [address] [id number] - [address] [place] [address] EMILIA Ibrahim MD: DIRECTOR SINTIA SÁNCHEZ Order: A1C GLYCOSYLATED HEMOGLOBIN LOINC Test Result Flag Range Unit Date 1Hemoglobin A1C 11.2 H 4.3-6.0 % 11/04/2017 20:15 1Mean Plasma Glucose 321 90-180 mg/dl 11/04/2017 20:15 Note: WHEN TEST RESULTS FOR A1C EXCEED 14.0, THE LINEAR LIMIT OF THE INSTRUMENT, THE CALCULATED RESULT FOR THE MEAN GLUCOSE IS NOT RELIABLE. * Performing Lab Footnotes:* [address] [place] [address] [id number] - [address] [place] [address] [address] EMILIA Ibrahim MD: DIRECTOR SINTIA SÁNCHEZ Order: CMP COMPREHENSIVE METABOLIC PANEL LOINC Test Result Flag Range Unit Date 2350-01 1Glucose:MCnc:Pt:Urine:Qn 147 H 75-110 mg/dl 11/04/2017 20:15 3094-0 1Urea nitrogen:MCnc:Pt:Ser/Plas:Qn 13 6.0-17.0 mg/dl 11/04/2017 20:15 2160-0 1Creatinine:MCnc:Pt:Ser/Plas:Qn 0.7 0.4-1.2 mg/dl 11/04/2017 20:15 2951-2 1Sodium:SCnc:Pt:Ser/Plas:Qn 140 137-145 mmol/l 11/04/2017 20:15 2823-3 1Potassium:SCnc:Pt:Ser/Plas:Qn 4.7 3.5-5.0 mmol/l 11/04/2017 20:15 5-0 1Chloride:SCnc:Pt:Ser/Plas:Qn 112 H 98-107 mmol/l 11/04/2017 20:15 8-9 1Carbon dioxide:SCnc:Pt:Ser/Plas:Qn 9 LL 22-30 mmol/l 11/04/2017 20:15 70650-5 1Calcium:MCnc:Pt:Ser/Plas:Qn 9.5 8.4-10.2 mg/dl 11/04/2017 20:15 2885-2 1Protein:MCnc:Pt:Ser/Plas:Qn 8 5.1-8.7 gm/dl 11/04/2017 20:15 1751-7 1Albumin:MCnc:Pt:Ser/Plas:Qn 4.2 3.5-4.6 gm/dl 11/04/2017 20:15 1A/G Ratio 1.1 1.1-2.2 % 11/04/2017 20:15 0-8 1Aspartate aminotransferase:CCnc:Pt:Ser/Plas:Qn 15 11-36 U/L 11/04/2017 20:15 1742-6 1Alanine aminotransferase:CCnc:Pt:Ser/Plas:Qn 15 11-40 U/L 11/04/2017 20:15 6768-6 1Alkaline phosphatase:CCnc:Pt:Ser/Plas:Qn 94 47-114 U/L 11/04/2017 20:15 1975-2 1Bilirubin:MCnc:Pt:Ser/Plas:Qn 0.3 0.2-1.2 mg/dl 11/04/2017 20:15 1Globulin 3.8 H 2.3-3.5 gm/dl 11/04/2017 20:15 1Calcium, Corrected 9.3 8.4-10.2 mg/dl 11/04/2017 20:15 Note: Various formulas exist for corrected serum calcium results, each yielding different values. This corrected result was based on the formula: Corrected Calcium=SerumCalcium + [0.8 * ( 4 - SerumAlbumin)] 1EGFR if >60 mL/min/1.73m^2 11/04/2017 20:15 1EGFR if Non- >60 mL/min/1.73m^2 11/04/2017 20:15 Note: Estimated Glomerular Filtration Rate (eGFR) Reference Intervals Decision Points for 18 years and older and average body mass: >=60 Does not exclude kidney disease. 30 - 59 Suggests moderate chronic kidney disease and indicates the need for further investigation including assessment of proteinuria and cardiovascular factors. < 30 Usually indicates a need for referral for assessment and management of chronic kidney failure. * Performing Lab Footnotes:* [address] [place] [address] - [id number] - [address] [address] [facility] - MD: DIRECTOR SINTIA SÁNCHEZ Order: CORONARY RISK LOINC Test Result Flag Range Unit Date 1Triglycerides 96 0-149 mg/dl 11/04/2017 20:15 Note: Trig. Interpretation Guide: Normal: < 150 mg/dl Borderline High: 150 - 199 mg/dl High: 200 - 499 mg/dl Very High: >=500 mg/dl 1Cholesterol 177 0-198 mg/dl 11/04/2017 20:15 1HDL 70 35-86 mg/dl 11/04/2017 20:15 96966-7 1Cholesterol.in LDL:MCnc:Pt:Ser/Plas:Qn:Direct assay 98 0-99 mg/dl 11/04/2017 20:15 Note: Direct LDL Intrepretations: Optimal: <100 mg/dl Suspect: 100 - 129 mg/dl Borderline: 130 - 159 mg/dl High: 160 - 189 mg/dl Very High: >190 mg/dl 1Risk Factor 2.5 0.0-4.4 11/04/2017 20:15 Note: Risk Factor Men Women Risk Factor 3.4 3.3 1/2 Average 5.0 4.4 Average 9.6 7.1 2X Average 24.0 11.0 3X Average 2089-1 1Cholesterol.in LDL:MCnc:Pt:Ser/Plas:Qn 19 L 20-40 mg/dl 11/04/2017 20:15 * Performing Lab Footnotes:* [address] [place] [id number] [place] [address] [place] ELLIS: DIRECTOR SINTIA SÁNCHEZ Order: CPK LOINC Test Result Flag Range Unit Date 1CPK 48 30-135 U/L 11/04/2017 20:15 * Performing Lab Footnotes:* [address] [place] [address] [id number] - [address] [place] [address] EMILIA Ibrahim MD: DIRECTOR SINTIA SÁNCHEZ Order: LACTIC ACID IH LOINC Test Result Flag Range Unit Date 1LACTATE 1.2 0.7-2.0 mmol/l 11/04/2017 20:15 * Performing Lab Footnotes:* [address] [place] [address] [id number] - [address] [place] [address] [place] [address], [place] [address] [facility] - MD: DIRECTOR SINTIA SÁNCHEZ Order: LIPASE SERUM LOINC Test Result Flag Range Unit Date 1Lipase 42 8-223 U/L 11/04/2017 20:15 * Performing Lab Footnotes:* [address] [place] [address] [id number] - [address] [place] [address] [place] [address], [place] [address] [facility] - MD: DIRECTOR SINTIA SÁNCHEZ Order: MAGNESIUM SERUM LOINC Test Result Flag Range Unit Date 1Magnesium 2.2 1.6-2.3 mg/dl 11/04/2017 20:15 * Performing Lab Footnotes:* [address] [place] [address] [id number] - [address] [place] [address] [place] [address], [place] [address] EMILIA - MD: DIRECTOR SNITIA SÁNCHEZ Order: MYOGLOBIN PLASMA LOINC Test Result Flag Range Unit Date 1Myoglobin 36.1 0.0-61.5 ng/ml 11/04/2017 20:15 * Performing Lab Footnotes:* [address] [place] [address] [id number] - [address] [facility] [address] [place] [address], [place] [address] EMILIA Ibrahim MD: DIRECTOR SINTIA SÁNCHEZ Order: PROTIME PT INR LOINC Test Result Flag Range Unit Date 5902-2 1Coagulation tissue factor induced:Time:Pt:PPP:Qn:Coag 9.7 9.0-11.9 seconds 11/04/2017 20:15 6301-6 1Coagulation tissue factor induced.INR:RelTime:Pt:PPP:Qn:Coag 0.9 0.9-1.1 11/04/2017 20:15 Note: INR results are intended ONLY to monitor Oral Anticoagulant therapy in stablized patients. The INR Therapeutic Range is 2.0 - 3.0 Patients with a mechanical heart, the INR Range is 2.5 - 3.5 * Performing Lab Footnotes:* [address] [place] [address] - [id number] - [address] [facility] [address] [place] [address], [place] [address] EMILIA Ibrahim MD: DIRECTOR SINTIA SÁNCHEZ Order: PTT PARTIAL THROMBOPLASTIN TM LOINC Test Result Flag Range Unit Date 40409-0 1Coagulation surface induced:Time:Pt:PPP:Qn:Coag 22.2 L 23.0-33.0 seconds 11/04/2017 20:15 * Performing Lab Footnotes:* [address] [place] [address] [id number] - [address] [facility] [address] [place] [address] EMILIA Ibrahim MD: DIRECTOR SINTIA SÁNCHEZ Order: TROPONIN I QUANTITATIVE LOINC Test Result Flag Range Unit Date 1Troponin-I <0.012 0.000-0.034 ng/ml 11/04/2017 20:15 Note: The 99th Percentile URL is 0.034 ng/mL. The Joint Society of Cardiology/[place] [employer] (ESC/ACC) and the National [...] first 24 hours after the clinical event. * Performing Lab Footnotes:* [address] [place] [address] [id number] - [address] [facility] [address] [place] [address] EMILIA Ibrahim MD: DIRECTOR SINTIA SÁNCHEZ Vital Signs Vitals Value Date Respiratory Rate 21 11/06/2017 O2% BldC Oximetry 100 11/06/2017 BP Systolic 147 mmHg 11/06/2017 BP Diastolic 69 mmHg 11/06/2017 Body Temperature 97.9 F 11/06/2017 Weight Measured 171.96 lbs 11/06/2017 BSA (Body Surface Area) 1.61772 11/04/2017 BMI (Body Mass Index) 26.3 11/04/2017 Height 68 in 11/04/2017 Plan of Care * No data in the system Procedures * No data in the system Encounters Date Code Diagnosis Status ([facility]) - 092073124 TYP 1 DM W/KETOACIDOSIS W/O COMA Active Immunizations * No data in the system Functional Status Code Functional/Cognitive Condition Code System Date Status 920415795 No speech problem (situation) [facility] 11/06/2017 Active 920997831 Firm pressure touch, function (observable entity) [facility] 11/05/2017 Active 749452495 Orientated [facility] 11/06/[address] [facility] 11/06/2017 Active 153799752 Orientated [facility] 11/06/2017 Active 852316936 Ability to perform activities of everyday life (observable entity) [facility] 11/04/2017 Active 358187044 Ability to perform personal hygiene activity (observable entity) [facility] 11/04/2017 Active 636201165 Ability to manage personal health care (observable entity) [facility] 11/04/2017 Active 296748381 Oriented to person [facility] 11/06/2017 Active 587070315 Stable gait (finding) [facility] 11/05/2017 Active [address]71 Normal vision [facility] 11/04/2017 Active Hospital Discharge Instructions * Discharge Instructions* Discharge Diagnosis* DKA * Physician Name for Follow Up Appt #1* Call PCP on Wednesday11/08/17 for follow up appointment. * Pneumonia Vaccine* Refused By Patient * IV Removed Date* 11/06/2017 * Discharge Blood Sugar* 89 * Activity Level* As tolerated, unrestricted * Medications* Prescriptions Given * Take all medications as listed on your Discharge Medication List as directed * DO NOT STOP taking your medicine(s) until directed by your doctor. * Diet* Diabetic * Discharge Instructions* Patient education provided * Follow Up Care* Patient To Schedule * Written Discharge Plan given to the Patient at the time of discharge contains: * Reason for hospitalization * Discharge medications including what medications to take, how to take them, and how to obtain the medication. * Patient / family / caregiver given instructions on what to do if their condition changes. * Coordination and planning for follow-up appointments that the patient can keep. * Influenza Vaccine NOT Given, State Reason(s) Below:* Previously immunized during this flu season * Discharge Instructions 2* Wound / Incision Care* Not Applicable * Core Measure / Get with the Guidelines (AMI/HF)* Review Discharge Medications with patient for next dose times * Smoking Cessation Teaching* Patient is nonsmoker or former smoker of greater than one year * Discharge Education* Copy of Discharge Medication List * Discussed New / Changed Medications * Personal Belongings Returned To Patient/Family* N/A * Valuables Returned To Patient/Family* N/A * Pre-Admission Medications Returned To Patient/Family* N/A * Patient/Significant Other Education Acknowledgement* I hereby acknowledge receiving the explanation of the attached instructions. I was able to 'teach back' my health information and education to my nurse and I understand what I was taught as indicated by my signature below. * Person Receiving Discharge Instructions* Patient * Discharge Instructions Explained To* Patient * Discharge Summary* Discharge Status* Vital Signs Stable * Patient Transferred/Discharged To* Home * Mode Of Discharge* Wheelchair * Discharge Status* Afebrile * Accompanied By* Parents * Discharge Status* Adequate Diet/Liquid Intake * Adequate Urinary Output * Adequate Bowel Functioning * Activity Tolerated within Physical Limits * Home Health Care Monitoring Required* No * Pain At Discharge* Denies Pain
--- OUTSIDE RECORDS SUMMARY | 2018-05-22 18:02 | XMS REPORT | Continuity of Care Document ---
Author Author [facility] Organization [facility] Address Unknown Phone Unavailable Care Team Providers Care Slot Floor Person Name Role Phone MARA FRANCIS MD PCP Insurance Providers Guarantor LonnieJosh Address [address] [place] [address] Email N Payer [facility] Policy Number [id number] Subscriber's Name Josh Fleming Relationship Self / Same As Patient Group Number NA Group Name SELF PAY Effective Date 14 Advance Directives Directive Response Recorded Date/Time Does the Patient have an Advance Directive? No 11/04/17 2:42pm Chief Complaint and Reason for Visit Chief Complaint Blood Sugar - High Reason for Visit [id number] Problems Medical Problem Onset Date Status Left arm swelling Unknown Stage I decubitus ulcer and pressure area Unknown Fracture of left radius and ulna Unknown Acute Sprain of right knee Unknown Acute Traumatic hematoma of right knee Unknown Acute Past Problems Medical Problem Onset Date Status DKA (diabetic ketoacidoses) Unknown Acute Hypoglycemia Unknown Acute IDDM (insulin dependent diabetes mellitus) Unknown Acute Hypochromic microcytic anemia Unknown Acute DKA (diabetic ketoacidoses) Unknown Acute Hypoglycemia Unknown Resolved Medications Current Home Medications Medication Dose Units [...] Onset Date Status Hx Tobacco Use No 11/04/2017 2:42pm Not Applicable Not Applicable Smoking Status Start Date Stop Date Never Smoker Hospital Discharge Instructions No hospital discharge instruction information available. Plan of Care Discharge Date 11/04/17 6:02pm Disposition ADMITTED INPATIENT 09 Condition at Discharge Serious Prescriptions See Medication Section Referrals MARA FRANCIS MD Address: [address] [place] [address] Functional Status Query Response Date Recorded Onset Within the Last 7 Days No Problem Identified November 04, 2017 2:42pm Allergies, Adverse Reactions, Alerts Allergen Type Severity Reaction Status Last Updated Sulfonamide Allergy Unknown Active 01/06/13 Immunizations Query Response on File Recorded Date/Time HX of Pneumococcal Vaccine No 11/04/17 2:42pm Date Pneumovax Given 08/05/16 9:58am HX of Influenza Vaccine No 11/04/17 2:42pm Date Influenza Given 08/201111/04/17 2:42pm Tetanus Status Unknown 11/04/17 2:42pm Hx Hepatitis A Vaccination Not Vaccinated 08/02/16 10:02am Hx Hepatitis B Vaccination None 08/02/16 10:02am Vital Signs Acute Vital Signs Vital Response Date/Time Temperature (Fahrenheit) 98.3 degrees F (97.6 - 99.5) 11/04/2017 5:51pm Pulse Rate (adult) 113 bpm (60 - 100) 11/04/2017 5:07pm Pulse Rate 113 bpm 11/04/2017 5:51pm Respiratory Rate 28 breaths per minute (12 - 24) 11/04/2017 5:07pm Respiratory Rate 28 breaths per minute 11/04/2017 5:51pm Blood Pressure Systolic 128 mm Hg (100 - 140) 11/04/2017 5:07pm Blood Pressure Systolic 128 mm Hg 11/04/2017 5:51pm Blood Pressure Diastolic 72 mm Hg (60 - 90) 11/04/2017 5:07pm Blood Pressure Diastolic 72 mm Hg 11/04/2017 5:51pm Height 5 ft 8 in 11/04/2017 2:36pm Weight 170 lb 11/04/2017 2:36pm Body Mass Index 25.8 kg/m^2 11/04/2017 2:36pm Results Laboratory Results Test Name Result Units Flags Reference Collection Date/Time Result Date/Time Comments White Blood Count 10.9 10*3/uL 4.5-11.5 11/04/2017 3:15pm 11/04/2017 3:45pm Red Blood Count 4.67 10*6/uL 3.8-5.1 11/04/2017 3:15pm 11/04/2017 3:45pm Hemoglobin 9.2 g/dL L 12.0-15.2 11/04/2017 3:15pm 11/04/2017 3:45pm Hematocrit 32.8 % L 34.0-45.5 11/04/2017 3:15pm 11/04/2017 3:45pm Mean Corpuscular Volume 70.2 fL L 80-94 11/04/2017 3:15pm 11/04/2017 3:45pm Mean Corpuscular Hemoglobin 19.7 pg L 27.0-33.0 11/04/2017 3:15pm 11/04/2017 3:45pm Mean Corpuscular Hemoglobin Concent 28.0 g/dL L 33.0-37.0 11/04/2017 3:15pm 11/04/2017 3:45pm Red Cell Distribution Width 22.0 % H 10.7-14.5 11/04/2017 3:15pm 11/04/2017 3:45pm Platelet Count 476 10*3/uL H 150-450 11/04/2017 3:15pm 11/04/2017 3:45pm Mean Platelet Volume 8.9 fL 5.7-10.7 11/04/2017 3:15pm 11/04/2017 3:45pm Neutrophils (%) (Auto) 86 % H 47-75 11/04/2017 3:15pm 11/04/2017 3:45pm Lymphocytes (%) (Auto) 9 % L 25-44 11/04/2017 3:15pm 11/04/2017 3:45pm Monocytes (%) (Auto) 5 % 3-10 11/04/2017 3:15pm 11/04/2017 3:45pm Eosinophils (%) (Auto) 0 % 0-7 11/04/2017 3:15pm 11/04/2017 3:45pm Basophils (%) (Auto) 1 % 0-1 11/04/2017 3:15pm 11/04/2017 3:45pm Neutrophils # (Auto) 9.4 10*3/uL H 1.3-6.7 11/04/2017 3:15pm 11/04/2017 3:45pm Lymphocytes # (Auto) 0.9 10*3/uL L 1.4-4.1 11/04/2017 3:15pm 11/04/2017 3:45pm Monocytes # (Auto) 0.5 10*3/uL 0-1.3 11/04/2017 3:15pm 11/04/2017 3:45pm Eosinophils # (Auto) 0.0 10*3/uL 0-0.8 11/04/2017 3:15pm 11/04/2017 3:45pm Basophils # (Auto) 0.1 10*3/uL 0-0.1 11/04/2017 3:15pm 11/04/2017 3:45pm Manual Differential Scan RBC Morph 11/04/2017 3:15pm 11/04/2017 3:45pm Anisocytosis 2+ 11/04/2017 3:15pm 11/04/2017 4:10pm Microcytosis 2+ 11/04/2017 3:15pm 11/04/2017 4:10pm Hypochromasia 1+ 11/04/2017 3:15pm 11/04/2017 4:10pm Urine Source URINE 11/04/2017 3:02pm 11/04/2017 4:19pm Urine Color Colorless Yel-Shalini * 11/04/2017 3:02pm 11/04/2017 4:23pm Urine Appearance Clear Clear * 11/04/2017 3:02pm 11/04/2017 4:23pm Urine pH 5.0 5.0-8.0 11/04/2017 3:02pm 11/04/2017 4:23pm Urine Specific Zalma 1.017 1.005-1.030 11/04/2017 3:02pm 11/04/2017 4:23pm Urine Protein 20 mg/dL H Negative * 11/04/2017 3:02pm 11/04/2017 4:23pm Urine Glucose (UA) >1000 mg/dL H Negative * 11/04/2017 3:02pm 11/04/2017 4:23pm Urine Ketones >150 mg/dL H Negative * 11/04/2017 3:02pm 11/04/2017 4:23pm Urine Occult Blood Trace H Negative * 11/04/2017 3:02pm 11/04/2017 4:23pm Urine Nitrite Negative Negative 11/04/2017 3:02pm 11/04/2017 4:23pm Urine Bilirubin Negative mg/dL Negative 11/04/2017 3:02pm 11/04/2017 4:23pm Urine Urobilinogen Negative mg/dL 0.0-1.0 11/04/2017 3:02pm 11/04/2017 4:23pm Urine Leukocyte Esterase 75 Oh/uL H Negative 11/04/2017 3:02pm 11/04/2017 4:23pm Urine RBC 3-10 /HPF H 0-2 11/04/2017 3:02pm 11/04/2017 4:39pm Urine WBC 6-20 /HPF H 0-5 11/04/2017 3:02pm 11/04/2017 4:39pm Urine Epithelial Cells Rare /HPF Few 11/04/2017 3:02pm 11/04/2017 4:39pm Urine Crystals None Seen /HPF None * 11/04/2017 3:02pm 11/04/2017 4:39pm Urine Bacteria Few /HPF A None 11/04/2017 3:02pm 11/04/2017 4:39pm Urine Casts None Seen /LPF None * 11/04/2017 3:02pm 11/04/2017 4:39pm Urine Yeast None Seen /HPF None 11/04/2017 3:02pm 11/04/2017 4:39pm Urinalysis Comment * * 11/04/2017 3:02pm 11/04/2017 4:23pm Ref Range=* Clinical evaluation required. Urine Culture Indicated To follow A 11/04/2017 3:02pm 11/04/2017 4:39pm Sodium Level 133 mmol/L L 136-145 11/04/2017 3:15pm 11/04/2017 4:15pm Potassium Level 5.1 mmol/L 3.5-5.1 11/04/2017 3:15pm 11/04/2017 4:15pm Chloride Level 98 mmol/L 98-107 11/04/2017 3:15pm 11/04/2017 4:15pm Carbon Dioxide Level 7 mmol/L CL 21-32 11/04/2017 3:15pm 11/04/2017 4:15pm Critical value: Called to SAYRA GERARDO at 1614 on 11/04/17 by [id number]. Result read-back successful. Y Anion Gap 33 H 5-14 11/04/2017 3:15pm 11/04/2017 4:15pm Blood Urea Nitrogen 15 mg/dL 6-20 11/04/2017 3:15pm 11/04/2017 4:15pm Creatinine 1.1 mg/dL 0.6-1.3 11/04/2017 3:15pm 11/04/2017 4:15pm Estimat Glomerular Filtration Rate 57 L 73-125 11/04/2017 3:15pm 11/04/2017 4:15pm Stages of Patients with Estimated GFR Known [...] the result provided by [email or web address]. BUN/Creatinine Ratio 14 11/04/2017 3:15pm 11/04/2017 4:15pm Glucose Level 450 mg/dL CH 60-100 11/04/2017 3:15pm 11/04/2017 4:15pm Critical value: Called to SAYRA GERARDO at 1614 on 11/04/17 by [id number]. Result read-back successful. Y Calculated Osmolality 287 mOsm/kg 11/04/2017 3:15pm 11/04/2017 4:15pm Calcium Level 9.2 mg/dL 8.5-10.1 11/04/2017 3:15pm 11/04/2017 4:15pm Bedside Troponin I 0.00 ng/mL 0.00-0.07 11/04/2017 3:38pm 11/04/2017 3:57pm Bedside Lactic Acid Arterial 0.64 mmol/L 0.36-1.25 11/04/2017 5:08pm 11/04/2017 5:11pm Bedside Glucose 369 mg/dL H 60-100 11/04/2017 5:43pm 11/04/2017 5:45pm Arterial Blood pH 7.19 CL 7.35-7.45 11/04/2017 4:55pm 11/04/2017 5:16pm Critical value: Called to DR PETTY at 1714 on 11/04/17 by [id number]. Result read-back successful. Y Arterial Blood Partial Pressure CO2 9 mmHg CL 35-45 11/04/2017 4:55pm 11/04/2017 5:16pm Critical value: Called to DR PETTY at 1715 on 11/04/17 by [id number]. Result read-back successful. Y Arterial Blood Partial Pressure O2 129 mmHg CH 80-100 11/04/2017 4:55pm 11/04/2017 5:16pm Critical value: Called to DR PETTY at 1715 on 11/04/17 by [id number]. Result read-back successful. Y Arterial Blood HCO3 3 mmHg L 22-26 11/04/2017 4:55pm 11/04/2017 5:16pm Arterial Blood Base Excess -22 mmol/L L -2-2 11/04/2017 4:55pm 11/04/2017 5:16pm Arterial Blood Oxygen Saturation 99 % 90-100 11/04/2017 4:55pm 11/04/2017 5:16pm Oxygen Delivery Device ROOM AIR 11/04/2017 4:55pm 11/04/2017 5:16pm Blood Gas Puncture Site Right Brachial 11/04/2017 4:55pm 11/04/2017 5:16pm Kostas Test Not Applicable 11/04/2017 4:55pm 11/04/2017 5:16pm Procedures Procedure Status Date Provider(s) ECG (electrocardiogram) Active 11/04/17 PRINCESS PETTY MD Encounters Encounter Location Arrival/Admit Date Discharge/Depart Date Attending Provider Departed Emergency Room [facility] 11/04/17 2:22pm 11/04/17 6:02pm PRINCESS PETTY MD Recent Diagnosis
--- OUTSIDE RECORDS SUMMARY | 2018-05-22 18:02 | XMS REPORT | Continuity of Care Document ---
Author Author [facility] Organization [facility] Address Unknown Phone Unavailable Support Name Relationship Address Phone ACACIA ELIAS MD Caregiver [address] [place] [address] [address] Next Of Kin [address] [place] [address] Care Team Providers Care Pricing Coordinator Name Role Phone MARA FRANCIS MD PCP Insurance Providers Guarantor Josh Fleming Address [address] [place] [address] Email N Payer [employer] [facility] Ju Policy Number [id number] Subscriber's Name Josh Fleming Relationship Self / Same As Patient Group Number NA Group Name SELF PAY Effective Date 14 Advance Directives Directive Response Recorded Date/Time Does the Patient have an Advance Directive? No 02/12/18 9:30am Chief Complaint and Reason for Visit Chief Complaint Blood Sugar - High Reason for Visit [id number] Hyperglycemia Problems Medical Problem Onset Date Status Left [...] Unknown Acute DKA (diabetic ketoacidoses) Unknown Acute IDDM (insulin dependent diabetes mellitus) Unknown Acute DKA (diabetic ketoacidoses) Unknown Acute Hyperglycemia Unknown Acute Hypoglycemia Unknown Resolved Medications Current [...] Onset Date Status Hx Tobacco Use No 02/12/2018 9:30am Not Applicable Not Applicable Smoking Status Start Date Stop Date Never Smoker Hospital Discharge Instructions No hospital discharge instruction information available. Plan of Care Discharge Date 02/12/18 11:50am Disposition SHORT TERM ACUTE HOSP 02 Condition at Discharge Critical Prescriptions See Medication Section Referrals MARA FRANCIS MD Address: [address] [place] [address] Functional Status Query Response Date Recorded Onset Within the Last 7 Days No Problem Identified February 12, 2018 9:30am Allergies, Adverse Reactions, Alerts Allergen Type Severity Reaction Status Last Updated Sulfonamide Allergy Unknown Active 01/06/13 Immunizations Query Response on File Recorded Date/Time HX of Pneumococcal Vaccine No 02/12/18 9:30am Date Pneumovax Given 08/05/16 9:58am HX of Influenza Vaccine No 02/12/18 9:30am Date Influenza Given 08/201102/12/18 9:30am Tetanus Status Unknown 02/12/18 9:30am Hx Hepatitis A Vaccination Not Vaccinated 08/02/16 10:02am Hx Hepatitis B Vaccination None 08/02/16 10:02am Vital Signs Acute Vital Signs Vital Response Date/Time Temperature (Fahrenheit) 98.2 degrees F (97.6 - 99.5) 02/12/2018 9:27am Pulse Rate (adult) 118 bpm (60 - 100) 02/12/2018 9:27am Pulse Rate 106 bpm 02/12/2018 12:26pm Respiratory Rate 18 breaths per minute (12 - 24) 02/12/2018 9:27am Respiratory Rate 20 breaths per minute 02/12/2018 12:26pm Blood Pressure Systolic 142 mm Hg (100 - 140) 02/12/2018 9:27am Blood Pressure Systolic 136 mm Hg 02/12/2018 12:26pm Blood Pressure Diastolic 68 mm Hg (60 - 90) 02/12/2018 9:27am Blood Pressure Diastolic 72 mm Hg 02/12/2018 12:26pm Height 5 ft 9 in 02/12/2018 9:27am Weight 153 lb 02/12/2018 9:27am Body Mass Index 22.6 kg/m^2 02/12/2018 9:27am Results Laboratory Results Test Name Result Units Flags Reference Collection Date/Time Result Date/Time Comments White Blood Count 14.8 10*3/uL H 4.5-11.5 02/12/2018 9:40am 02/12/2018 10:30am Red Blood Count 4.80 10*6/uL 3.8-5.1 02/12/2018 9:40am 02/12/2018 10:26am Hemoglobin 9.7 g/dL L 12.0-15.2 02/12/2018 9:40am 02/12/2018 10:26am Hematocrit 35.0 % 34.0-45.5 02/12/2018 9:40am 02/12/2018 10:26am Mean Corpuscular Volume 72.9 fL L 80-94 02/12/2018 9:40am 02/12/2018 10:26am Mean Corpuscular Hemoglobin 20.2 pg L 27.0-33.0 02/12/2018 9:40am 02/12/2018 10:26am Mean Corpuscular Hemoglobin Concent 27.7 g/dL L 33.0-37.0 02/12/2018 9:40am 02/12/2018 10:26am Red Cell Distribution Width 19.2 % H 10.7-14.5 02/12/2018 9:40am 02/12/2018 10:26am Platelet Count 659 10*3/uL H 150-450 02/12/2018 9:40am 02/12/2018 10:26am Mean Platelet Volume 9.5 fL 5.7-10.7 02/12/2018 9:40am 02/12/2018 10:26am Manual Differential ----- 02/12/2018 9:40am 02/12/2018 10:26am Neutrophils % (Manual) 91 % H 42-75 02/12/2018 9:40am 02/12/2018 10:30am Lymphocytes % (Manual) 5 % L 21-51 02/12/2018 9:40am 02/12/2018 10:30am Monocytes % (Manual) 4 % 1-9 02/12/2018 9:40am 02/12/2018 10:30am Platelet Estimate Increased 02/12/2018 9:40am 02/12/2018 10:30am Red Blood Cell Morphology Normal 02/12/2018 9:40am 02/12/2018 10:30am Anisocytosis 2+ 02/12/2018 9:40am 02/12/2018 10:30am Microcytosis 1+ 02/12/2018 9:40am 02/12/2018 10:30am Hypochromasia 1+ 02/12/2018 9:40am 02/12/2018 10:30am Urine Source URINE 02/12/2018 9:30am 02/12/2018 12:14pm Urine Color Colorless Yel-Shalini * 02/12/2018 9:30am 02/12/2018 12:16pm Urine Appearance Clear Clear * 02/12/2018 9:30am 02/12/2018 12:16pm Urine pH 5.0 5.0-8.0 02/12/2018 9:30am 02/12/2018 12:16pm Urine Specific Parsons 1.016 1.005-1.030 02/12/2018 9:30am 02/12/2018 12:16pm Urine Protein 20 mg/dL H Negative * 02/12/2018 9:30am 02/12/2018 12:16pm Urine Glucose (UA) >1000 mg/dL H Negative * 02/12/2018 9:3002/12/2018 12:16pm Urine Ketones >150 mg/dL H Negative * 02/12/2018 9:30am 02/12/2018 12:16pm Urine Occult Blood Trace H Negative * 02/12/2018 9:30am 02/12/2018 12:16pm Urine Nitrite Negative Negative 02/12/2018 9:30am 02/12/2018 12:16pm Urine Bilirubin Negative mg/dL Negative 02/12/2018 9:30am 02/12/2018 12:16pm Urine Urobilinogen Negative mg/dL 0.0-1.0 02/12/2018 9:30am 02/12/2018 12:16pm Urine Leukocyte Esterase Negative Oh/uL Negative 02/12/2018 9:30am 02/12/2018 12:16pm Microscopic Urinalysis (T) ----- 02/12/2018 9:30am 02/12/2018 12:16pm Urinalysis Comment * * 02/12/2018 9:30am 02/12/2018 12:16pm Ref Range=* Clinical evaluation required. Sodium Level 137 mmol/L 136-145 02/12/2018 9:40am 02/12/2018 10:34am Potassium Level 4.8 mmol/L 3.5-5.1 02/12/2018 9:40am 02/12/2018 10:34am Chloride Level 102 mmol/L 98-107 02/12/2018 9:40am 02/12/2018 10:34am Carbon Dioxide Level 9 mmol/L CL 21-32 02/12/2018 9:40am 02/12/2018 10:34am Critical value: Called to BRENT HARRISRN/ER at 1034 on 02/12/18 by [id number]. Result read-back successful. Y Anion Gap 31 H 5-14 02/12/2018 9:4002/12/2018 10:34am Blood Urea Nitrogen 18 mg/dL 6-20 02/12/2018 9:4002/12/2018 10:34am Creatinine 1.2 mg/dL 0.6-1.3 02/12/2018 9:4002/12/2018 10:34am Estimat Glomerular Filtration Rate 51 L 73-125 02/12/2018 9:4002/12/2018 10:34am Stages of Patients with Estimated GFR Known [...] the result provided by [email or web address]. BUN/Creatinine Ratio 15 02/12/2018 9:4002/12/2018 10:34am Glucose Level 392 mg/dL H 60-100 02/12/2018 9:4002/12/2018 10:34am Calculated Osmolality 292 mOsm/kg 02/12/2018 9:4002/12/2018 10:34am Calcium Level 9.4 mg/dL 8.5-10.1 02/12/2018 9:4002/12/2018 10:34am Total Bilirubin 0.4 mg/dL 0.1-1.0 02/12/2018 9:4002/12/2018 10:34am Aspartate Amino Transf (AST/SGOT) 16 U/L 15-37 02/12/2018 9:4002/12/2018 10:34am Alanine Aminotransferase (ALT/SGPT) 19 U/L 12-78 02/12/2018 9:4002/12/2018 10:34am Total Protein 9.1 g/dL H 6.4-8.3 02/12/2018 9:4002/12/2018 10:34am Albumin 3.9 g/dL 3.5-5.0 02/12/2018 9:4002/12/2018 10:34am Globulin 5.2 g/dL 02/12/2018 9:4002/12/2018 10:34am Albumin/Globulin Ratio 0.8 02/12/2018 9:40am 02/12/2018 10:34am Alkaline Phosphatase 107 U/L 46-116 02/12/2018 9:40am 02/12/2018 10:34am Lipase 74 U/L 73-393 02/12/2018 9:40am 02/12/2018 10:34am Serum Ketones Small A Negative 02/12/2018 9:40am 02/12/2018 10:20am Bedside Glucose 417 mg/dL CH 60-100 02/12/2018 9:39am 02/12/2018 9:42am Critical value reported at bedside. POC testing performed at the bedside. Immediate notification of results given to nurse/physician at time of testing. Venous Blood pH 7.159 L 7.31-7.41 02/12/2018 10:04am 02/12/2018 10:14am Blood Gas PCO2 19.9 mmHg L 41-51 02/12/2018 10:04am 02/12/2018 10:14am Blood Gas PO2 44.5 mmHg H 35-42 02/12/2018 10:04am 02/12/2018 10:14am Venous Blood HCO3 6.9 mmHg L 22-26 02/12/2018 10:04am 02/12/2018 10:14am Venous Blood Base Excess -20.0 mmol/L Not available 02/12/2018 10:04am 02/12/2018 10:14am Venous Blood Oxygen Saturation 62.0 % L 68-77 02/12/2018 10:04am 02/12/2018 10:14am Blood Gas Puncture Site VENOUS 02/12/2018 10:04am 02/12/2018 10:14am Kostas Test Not Applicable 02/12/2018 10:04am 02/12/2018 10:14am Procedures Procedure Status Date Provider(s) ECG (electrocardiogram) Active 02/12/18 ACACIA ELIAS MD X-ray of chest, single view Completed 02/12/18 ACACIA ELIAS MD Encounters Encounter Location Arrival/Admit Date Discharge/Depart Date Attending Provider Departed Emergency Room [facility] 02/12/18 9:21am 02/12/18 11:50am ACACIA ELIAS MD Recent Diagnosis Hyperglycemia
[2018-05-22 19:29] LABS: BASOPHILS # (AUTO) 0.1 (0.0-0.1); BASOPHILS % 0.3 % (0.0-1.0); HEMATOCRIT 34.1 % (34.2-44.1); HEMOGLOBIN 10.7 g/dL (12.0-16.0); LYMPHOCYTES # (AUTO) 1.2 (1.0-3.2); LYMPHOCYTES % 4.7 % (18.0-39.1); MEAN CORPUSCULAR HEMOGLOBIN 26.2 pg (28-32); MEAN CORPUSCULAR HGB CONC 31.4 g/dL (31-35); MEAN CORPUSCULAR VOLUME 83.6 fL (81-99); MONOCYTES # (AUTO) 1.8 (0.2-0.8); MONOCYTES % 7.2 % (4.4-11.3); NEUTROPHILS # (AUTO) 21.1 (2.1-6.9); NEUTROPHILS % 86.8 % (38.7-80.0); PLATELET COUNT 360 x10e3/uL (140-360); RED BLOOD COUNT 4.08 x10e6/uL (3.6-5.1); RED CELL DISTRIBUTION WIDTH 19.9 % (11.7-14.4)
[2018-05-22 19:31] LABS: BILIRUBIN,URINE NEGATIVE (NEGATIVE); CLARITY,URINE CLOUDY (CLEAR); COLOR,URINE YELLOW (YELLOW); KETONES,URINE NEGATIVE (NEGATIVE); LEUKOCYTE ESTERASE ,URINE 1+ (NEGATIVE); NITRITE,URINE POSITIVE (NEGATIVE); PROTEIN,URINE DIPSTICK 1+ (NEGATIVE); URINE UROBILINOGEN 0.2 mg/dL (0.2 - 1)
[2018-05-22 19:37] LABS: INR 0.97; PROTHROMBIN TIME 13.8 seconds (11.9-14.5)
[2018-05-22 19:38] LABS: PARTIAL THROMBOPLASTIN TIME 35.8 seconds (23.8-35.5)
[2018-05-22] MEDS ORDERED: CEFTRIAXONE SOD 1 GM VIAL IV SCH (19:45)
[2018-05-22 19:47] LABS: ALANINE AMINOTRANSFERASE 21 IU/L (0-55); ALBUMIN 3.2 g/dL (3.5-5.0); ALBUMIN/GLOBULIN RATIO 0.6 (0.8-2.0); ALKALINE PHOSPHATASE 69 IU/L (40-150); AMYLASE 28 U/L (25-125); BLOOD UREA NITROGEN 23 mg/dL (7-26); BUN/CREATININE RATIO 25 (6-25); CALCIUM 8.9 mg/dL (8.4-10.2); CARBON DIOXIDE 21 mmol/L (22-29); CHLORIDE 101 mmol/L (98-107); CREATININE, SERUM 0.93 mg/dL (0.57-1.11); EST GLOMERULAR FILTRATION RATE > 60 ML/MIN (60-); GLUCOSE 127 mg/dL (74-118); LIPASE 6 U/L (8-78); SODIUM 134 mmol/L (136-145)
[2018-05-22 19:48] LABS: BACTERIA,URINE MANY /HPF; EPITHELIAL CELLS,URINE FEW /LPF; RBC,URINE >50 /HPF (0-5); WBC,URINE (MAN) >50 /HPF (0-5)
[2018-05-22 19:52] LABS: BAND NEUTROPHILS % (MANUAL) 3 %; LYMPHOCYTES % (MANUAL) 7 % (19-48); MONOCYTES % (MANUAL) 4 % (3.4-9.0); NEUTROPHILS % (MANUAL) 85 % (40-74); PLATELET ESTIMATE ADEQUATE; PLATELET MORPHOLOGY COMMENT NORMAL; RBC MORPHOLOGY COMMENT NORMAL
--- NOTE | 2018-05-22 20:00 | Diagnostic Imaging Report ---
EXAM: CHEST 2 VIEWS, PA and lateral INDICATION: Fever, vomiting, low blood sugar COMPARISON: None FINDINGS: LINES/TUBES: None LUNGS: No consolidations or edema. PLEURA: No effusions or pneumothorax. HEART AND MEDIASTINUM: Normal size and contour. BONES AND SOFT TISSUES: No acute findings. IMPRESSION: No consolidative pneumonia. Signed by: Dr. Fatmata Staples M.D. on 05/22/2018 7:56 PM
[2018-05-22] MEDS ORDERED: NEURONTIN300 MG PO (20:09)
[2018-05-22] MEDS ORDERED: LANTUS 3ML100 UNITS/ SQ (20:10)
[2018-05-22] MEDS ORDERED: LISINOPRIL10 MG PO (20:10)
[2018-05-22] MEDS ORDERED: LANTUS 3ML100 UNITS/ SC (20:11)
[2018-05-22] MEDS ORDERED: SODIUM CHLORIDE 0.9% 1000ML 1,000 ML IV SCH (20:15)
[2018-05-22] MEDS ORDERED: MEROPENEM 1 GM VIAL ONE (20:53)
[2018-05-22] MEDS ORDERED: ACETAMINOPHEN 1000 MG/100 ML 100 ML IV ONE (20:53)
--- NOTE | 2018-05-22 21:08 | Diagnostic Imaging Report ---
EXAM: CT ABDOMEN AND PELVIS without IV CONTRAST INDICATION: Fever, vomiting, left flank pain COMPARISON: None TECHNIQUE: The abdomen and pelvis were scanned using a multidetector helical scanner. Coronal and sagittal reformations were obtained. Dose modulation, iterative reconstruction, and/or weight based adjustment of the mA/kV was utilized to reduce the radiation dose to as low as reasonably achievable. Renal stone protocol performed. IV Contrast: None Oral Contrast: None CTDIvol has been reviewed. It is below the limits set by the Radiation Protocol Committee (RPC). FINDINGS: LOWER THORAX: Mosaic attenuation in the lung bases likely secondary to air trapping. Mild interstitial thickening and faint ground glass opacities in the left lung base could be residual from patient's reported recent aspiration. LIVER: No masses BILIARY: Normal gallbladder. No ductal dilation. SPLEEN: No masses PANCREAS: No masses ADRENALS: No nodules RIGHT KIDNEY: No nephroureterolithiasis or hydronephrosis. LEFT KIDNEY: No nephroureterolithiasis or hydronephrosis. The left kidney is edematous in comparison to the right with perinephric and periureteral fat stranding. GI TRACT: No wall thickening or obstruction. VESSELS: Unremarkable PERITONEUM/RETROPERITONEUM: No free air or fluid LYMPH NODES: No lymphadenopathy REPRODUCTIVE ORGANS: Normal BLADDER: Normal SOFT TISSUES: Within the anterior subcutaneous tissues of the lower abdomen there is a right para midline 5.8 x 7 x 2.8 cm density with peripheral calcifications. Similar oval left para midline density measuring 7.1 x 8.3 x 3.3 cm. BONES: No suspicious bone lesions. IMPRESSION: 1. Appearance of left kidney consistent with pyelonephritis. 2. Bilateral 7 to 8 cm oval soft tissue densities in the subcutaneous tissues of the anterior lower abdomen. Possibly hematomas. Signed by: Dr. Fatmata Staples M.D. on 05/22/2018 9:04 PM
[2018-05-22] MEDS ORDERED: SODIUM CHLORIDE 0.9% 100 ML ONE (21:17)
[2018-05-22] MEDS: MEROPENEM 1GM 100 ML IV SCH (21:21)
[2018-05-22] MEDS ORDERED: DEXTROSE 50% SYRINGE 50 ML IV PRN (21:30)
[2018-05-22] MEDS ORDERED: MORPHINE SULFATE 2 MG/ML SYR IV PRN (21:30)
[2018-05-22] MEDS: SODIUM CHLORIDE 0.9% 1000ML 1,000 ML IV SCH (22:10)
[2018-05-22 23:22] VITALS: BP 105/48
[2018-05-23 00:15] VITALS: BP 97/59
[2018-05-23] MEDS: SODIUM CHLORIDE 0.9% 1000ML 1,000 ML IV SCH ×3 (05:19→21:26)
[2018-05-23 05:41] LABS: BASOPHILS # (AUTO) 0.1 (0.0-0.1); BASOPHILS % 0.3 % (0.0-1.0); HEMOGLOBIN 8.7 g/dL (12.0-16.0); LYMPHOCYTES # (AUTO) 1.1 (1.0-3.2); LYMPHOCYTES % 6.1 % (18.0-39.1); MEAN CORPUSCULAR HEMOGLOBIN 26.5 pg (28-32); MEAN CORPUSCULAR VOLUME 88.4 fL (81-99); MONOCYTES # (AUTO) 1.1 (0.2-0.8); MONOCYTES % 6.3 % (4.4-11.3); NEUTROPHILS # (AUTO) 15.7 (2.1-6.9); NEUTROPHILS % 86.5 % (38.7-80.0); PLATELET COUNT 234 x10e3/uL (140-360); RED BLOOD COUNT 3.28 x10e6/uL (3.6-5.1); RED CELL DISTRIBUTION WIDTH 20.4 % (11.7-14.4)
[2018-05-23 05:47] VITALS: BP 133/65
[2018-05-23 06:22] LABS: ALANINE AMINOTRANSFERASE 28 IU/L (0-55); ALBUMIN 2.5 g/dL (3.5-5.0); ALBUMIN/GLOBULIN RATIO 0.6 (0.8-2.0); ALKALINE PHOSPHATASE 71 IU/L (40-150); ANION GAP 12.9 mmol/L (8-16); BLOOD UREA NITROGEN 19 mg/dL (7-26); BUN/CREATININE RATIO 23 (6-25); CALCIUM 8.8 mg/dL (8.4-10.2); CARBON DIOXIDE 19 mmol/L (22-29); CHLORIDE 105 mmol/L (98-107); CREATININE, SERUM 0.84 mg/dL (0.57-1.11); EST GLOMERULAR FILTRATION RATE > 60 ML/MIN (60-); GLUCOSE 135 mg/dL (74-118); POTASSIUM 3.9 mmol/L (3.5-5.1); SODIUM 133 mmol/L (136-145)
[2018-05-23] MEDS: MEROPENEM 1GM 100 ML IV SCH ×3 (06:59→21:25)
[2018-05-23 08:00] VITALS: BP 168/84
[2018-05-23] MEDS: INSULIN REGULAR, HUMAN 100 UNIT/1 ML 3ML VIAL SQ SCH ×2 (08:00→11:30)
[2018-05-23] MEDS: ONDANSETRON HCL INJ 2 MG/ML VIAL IV PRN (08:47)
[2018-05-23] MEDS: ACETAMINOPHEN 1000 MG/100 ML IV PRN ×2 (09:30→17:45)
[2018-05-23 12:00] VITALS: BP 109/72
[2018-05-23] MEDS ORDERED: DEXTROSE 50% SYRINGE 50 ML IV PRN (13:15)
[2018-05-23] MEDS: GABAPENTIN 300 MG CAP PO SCH ×2 (15:00→17:30)
[2018-05-23] MEDS ORDERED: MORPHINE SULFATE INJ 4 MG/ML INJ IV PRN (15:15)
[2018-05-23 16:00] VITALS: BP 125/66
[2018-05-23] MEDS: INSULIN LISPRO 100 UNIT/1 ML 3ML VIAL SQ SCH ×2 (16:30→21:00)
[2018-05-23 20:00] VITALS: BP 104/58
[2018-05-23] MEDS: LISINOPRIL 10 MG TAB PO SCH (21:00)
[2018-05-23] MEDS: INSULIN DETEMIR 100 UNIT/ML PEN SQ SCH (21:00)
[2018-05-24] VITALS (7 sets, daily range): BP systolic 116–160; BP diastolic 62–76
[2018-05-24] MEDS: ONDANSETRON HCL INJ 2 MG/ML VIAL IV PRN ×2 (05:08→19:26)
[2018-05-24] MEDS: SODIUM CHLORIDE 0.9% 1000ML 1,000 ML IV SCH ×2 (05:14→16:00)
[2018-05-24] MEDS: MEROPENEM 1GM 100 ML IV SCH ×3 (05:15→21:12)
[2018-05-24] MEDS: ACETAMINOPHEN 1000 MG/100 ML IV PRN ×2 (05:28→19:27)
[2018-05-24 05:46] LABS: BASOPHILS % 0.4 % (0.0-1.0); EOSINOPHILS # (AUTO) 0.1 (0.0-0.4); EOSINOPHILS % 0.5 % (0.0-6.0); HEMATOCRIT 27.5 % (34.2-44.1); HEMOGLOBIN 8.5 g/dL (12.0-16.0); LYMPHOCYTES # (AUTO) 0.7 (1.0-3.2); LYMPHOCYTES % 7.1 % (18.0-39.1); MEAN CORPUSCULAR HEMOGLOBIN 26.7 pg (28-32); MEAN CORPUSCULAR HGB CONC 30.9 g/dL (31-35); MEAN CORPUSCULAR VOLUME 86.5 fL (81-99); MONOCYTES # (AUTO) 0.6 (0.2-0.8); MONOCYTES % 6.1 % (4.4-11.3); NEUTROPHILS % 85.4 % (38.7-80.0); PLATELET COUNT 253 x10e3/uL (140-360); RED BLOOD COUNT 3.18 x10e6/uL (3.6-5.1); RED CELL DISTRIBUTION WIDTH 19.8 % (11.7-14.4)
[2018-05-24 06:04] LABS: ALANINE AMINOTRANSFERASE 93 IU/L (0-55); ALBUMIN 2.5 g/dL (3.5-5.0); ALBUMIN/GLOBULIN RATIO 0.5 (0.8-2.0); ALKALINE PHOSPHATASE 210 IU/L (40-150); ANION GAP 12.2 mmol/L (8-16); BLOOD UREA NITROGEN 19 mg/dL (7-26); BUN/CREATININE RATIO 22 (6-25); CALCIUM 8.9 mg/dL (8.4-10.2); CARBON DIOXIDE 20 mmol/L (22-29); CHLORIDE 103 mmol/L (98-107); CREATININE, SERUM 0.86 mg/dL (0.57-1.11); EST GLOMERULAR FILTRATION RATE > 60 ML/MIN (60-); GLUCOSE 162 mg/dL (74-118); POTASSIUM 4.2 mmol/L (3.5-5.1); SODIUM 131 mmol/L (136-145)
[2018-05-24] MEDS: INSULIN LISPRO 100 UNIT/1 ML 3ML VIAL SQ SCH ×4 (07:30→21:00)
[2018-05-24] MEDS: INSULIN DETEMIR 100 UNIT/ML PEN SQ SCH ×2 (09:00→21:16)
[2018-05-24] MEDS: GABAPENTIN 300 MG CAP PO SCH ×3 (09:00→21:11)
[2018-05-24] MEDS: GUAIFENESIN/DEXTROMETHORPHAN LIQD 5 ML UDC PO PRN (19:26)
[2018-05-24] MEDS: LISINOPRIL 10 MG TAB PO SCH (21:11)
[2018-05-25] VITALS (8 sets, daily range): BP systolic 135–182; BP diastolic 67–86
[2018-05-25] MEDS: SODIUM CHLORIDE 0.9% 1000ML 1,000 ML IV SCH ×4 (02:31→23:50)
[2018-05-25] MEDS: MEROPENEM 1GM 100 ML IV SCH ×3 (05:09→21:06)
[2018-05-25] MEDS: INSULIN LISPRO 100 UNIT/1 ML 3ML VIAL SQ SCH ×4 (07:30→20:04)
[2018-05-25] MEDS: GABAPENTIN 300 MG CAP PO SCH ×3 (09:00→21:05)
[2018-05-25] MEDS: INSULIN DETEMIR 100 UNIT/ML PEN SQ SCH ×2 (09:00→21:00)
--- NOTE | 2018-05-25 14:15 | Consultation ---
DATE OF CONSULTATION: May 25, 2018 REASON FOR CONSULTATION: Sepsis, bacteremia, multi-drug resistant urinary tract infection present on admission. HISTORY OF PRESENT ILLNESS: This patient is a very pleasant, 47-year-old white female with history of type 1 diabetes mellitus. Apparently a month or 5 weeks ago, she was really sick. She lives in [place] and she was flown in to [facility]. She had pneumonia. She was there for like 2 weeks. She had seizure and she was told that she had pneumonia with E. coli. She was there for 2 1/2 weeks and sent home with some oral antibiotic. She was visiting her son here in [place] where she had fever and chills. She came to the emergency room. In the emergency room, her white count was 24.6, hemoglobin 10.7, hematocrit 34, sodium low 131, potassium 4.2, creatinine 0.86. Liver enzymes: AST 159, ALT 93, albumin 2.5. Her blood cultures came back positive today with ESBL E. coli. Her urine showed ESBL E. coli and surgery was consulted. Patient also has history of heart murmur but she has not been seen by anyone. She had a CAT scan which showed left kidney pyelonephritis. Patient is currently feeling better and has no complaints. MEDICATION: She is on insulin, Neurontin, Prinivil, Robitussin, Zofran and meropenem. REVIEW OF SYSTEMS: At present time. HEENT: Negative. PULMONARY: Negative. CARDIAC: Negative. : Negative. SKIN: There are no other rashes. All other systems at the present time are normal. PHYSICAL EXAMINATION: GENERAL: Alert, oriented, does not seem to be in any acute distress. VITAL SIGNS: Stable, currently afebrile. Temperature 97.6, heart rate 78, respirations 18. HEENT: Not icteric. NECK: Supple. CHEST: Clear. HEART: S1 and S2. She did have systolic ejection murmur 2/6. ABDOMEN: Soft. Bowel sounds present. No tenderness. EXTREMITIES: No edema. SKIN: No rash. IMPRESSION AND PLAN 1. Sepsis, E. coli, multi-drug resistant. I agree with meropenem, would need at least 2 weeks of IV antibiotic. I am concerned about murmur which is systolic. Will get an echocardiogram. Recheck her blood cultures. 2. Diabetes mellitus type 1. 3. I agree with hospitalization. 4. Will follow. Job#: [id number] GH
--- NOTE | 2018-05-25 14:17 | Diagnostic Imaging Report ---
Examination: Single AP view of the chest. COMPARISON: 05/22/2018 INDICATION: PICC placement DISCUSSION: Right upper extremity PICC has been placed, with the tip projecting over the low superior vena cava. Lungs remain well-inflated and without consolidation, pleural effusion, or pneumothorax. Stable cardiomediastinal contour. No acute osseous abnormality. IMPRESSION: Tip of right upper extremity PICC projects over the low superior vena cava. Clear lungs. Signed by: Dr. Roldan Lee M.D. on 05/25/2018 2:13 PM
[2018-05-25] MEDS ORDERED: ACETAMINOPHEN 325 MG TAB PO PRN (15:00)
[2018-05-25] MEDS ORDERED: LISINOPRIL 10 MG TAB PO ONE (15:15)
--- NOTE | 2018-05-25 16:24 | Consultation ---
DATE OF CONSULTATION: May 25, 2018 CARDIOLOGY CONSULTATION REASON FOR CONSULTATION: Hypertension. HISTORY OF PRESENT ILLNESS: This is a 47-year-old woman with a history of diabetes mellitus, hypertension, cardiac murmur and recent admission to an outside facility for pneumonia. She reports generalized unwell feeling, atypical chest discomfort, shortness of breath and lower back pain. She was found to have pyelonephritis and is currently receiving antibiotic therapies. Her blood pressure had been progressively increasing which prompted our consultation. REVIEW OF SYSTEMS: A 12-point review of systems was conducted, and is negative other than stated above in the HPI. PAST MEDICAL HISTORY: Hypertension, diabetes mellitus, cardiac murmur, recent episode of pneumonia, urinary tract infections. PAST SURGICAL HISTORY: None recently reported. PAST FAMILY HISTORY: No premature coronary artery disease or sudden cardiac . SOCIAL HISTORY: No illicit drug use, alcohol use or tobacco use. ALLERGIES: SULFA. MEDICATIONS: See medication reconciliation form. PHYSICAL EXAMINATION VITAL SIGNS: Temperature 97.4, heart rate 74, respirations 18, blood pressure 182/86, oxygen saturation 95% on 3 liters nasal cannula. GENERAL: She is a woman seated in bed in no apparent distress. She is alert and oriented x3. HEENT: Head is normocephalic, atraumatic. Eyes: Extraocular movements are intact. Conjunctivae clear. NECK: No JVD. No bruits. CARDIOVASCULAR: Regular rate and rhythm with a diastolic murmur heard best at the left lower sternal border. LUNGS: Clear to auscultation. ABDOMEN: Soft, nontender. EXTREMITIES: No edema. VASCULAR: Diminished pulses. SKIN: Warm, dry, and intact. NEUROLOGIC: No focal deficits noted. Cranial nerves are grossly intact. PSYCHIATRIC: Normal mood and affect. LABORATORY DATA: Reviewed and notable for sodium of 131, potassium 4.2, creatinine 0.86, AST 159, ALT 93, alkaline phosphatase 210. CT of the abdomen and pelvis shows to the left kidney consistent with pyelonephritis, bilateral 7-8 cm oval soft tissue densities in the subcutaneous tissues of the anterior lower abdomen. IMPRESSION AND RECOMMENDATIONS: 1. Hypertension. The patient is on lisinopril 10 mg with a normal creatinine and potassium. Will increase this to 20 mg and can add additional agents as needed. 2. Cardiac murmur. The patient has what appears to be a diastolic murmur. She has a prior history of this. With her current bacteremia, will check an echocardiogram. 3. Abnormal liver function test. Treatment per primary team. 4. Bacteremia with pyelonephritis. Antibiotic therapies per primary team. Thank you for the consultation. Will follow along with you. Job#: [id number] SEBAS
[2018-05-25] MEDS ORDERED: LISINOPRIL 10 MG TAB PO SCH (21:00)
[2018-05-25] MEDS ORDERED: LISINOPRIL 20 MG TAB PO SCH (21:00)
[2018-05-26 00:29] VITALS: BP 142/84
[2018-05-26] MEDS: GUAIFENESIN/DEXTROMETHORPHAN LIQD 5 ML UDC PO PRN (03:31)
[2018-05-26] MEDS: ONDANSETRON HCL INJ 2 MG/ML VIAL IV PRN (03:31)
[2018-05-26 05:09] VITALS: BP 166/98
[2018-05-26] MEDS: MEROPENEM 1GM 100 ML IV SCH ×3 (05:10→22:17)
[2018-05-26] MEDS: SODIUM CHLORIDE 0.9% 1000ML 1,000 ML IV SCH (05:10)
[2018-05-26 07:25] LABS: BASOPHILS # (AUTO) 0.1 (0.0-0.1); BASOPHILS % 0.9 % (0.0-1.0); EOSINOPHILS # (AUTO) 0.1 (0.0-0.4); EOSINOPHILS % 1.9 % (0.0-6.0); HEMATOCRIT 24.1 % (34.2-44.1); HEMOGLOBIN 7.5 g/dL (12.0-16.0); LYMPHOCYTES # (AUTO) 1.4 (1.0-3.2); LYMPHOCYTES % 25.8 % (18.0-39.1); MEAN CORPUSCULAR HEMOGLOBIN 26.8 pg (28-32); MEAN CORPUSCULAR HGB CONC 31.1 g/dL (31-35); MEAN CORPUSCULAR VOLUME 86.1 fL (81-99); MONOCYTES # (AUTO) 0.6 (0.2-0.8); MONOCYTES % 10.4 % (4.4-11.3); NEUTROPHILS # (AUTO) 3.2 (2.1-6.9); NEUTROPHILS % 60.6 % (38.7-80.0); PLATELET COUNT 254 x10e3/uL (140-360); RED CELL DISTRIBUTION WIDTH 19.8 % (11.7-14.4)
[2018-05-26] MEDS: INSULIN LISPRO 100 UNIT/1 ML 3ML VIAL SQ SCH ×4 (07:30→21:00)
[2018-05-26 07:35] VITALS: BP 141/86
[2018-05-26 07:44] LABS: ALANINE AMINOTRANSFERASE 93 IU/L (0-55); ALBUMIN 2.3 g/dL (3.5-5.0); ALBUMIN/GLOBULIN RATIO 0.6 (0.8-2.0); ALKALINE PHOSPHATASE 310 IU/L (40-150); ANION GAP 10.4 mmol/L (8-16); BLOOD UREA NITROGEN 18 mg/dL (7-26); BUN/CREATININE RATIO 25 (6-25); CALCIUM 8.8 mg/dL (8.4-10.2); CARBON DIOXIDE 24 mmol/L (22-29); CHLORIDE 105 mmol/L (98-107); CREATININE, SERUM 0.72 mg/dL (0.57-1.11); EST GLOMERULAR FILTRATION RATE > 60 ML/MIN (60-); GLUCOSE 196 mg/dL (74-118); POTASSIUM 4.4 mmol/L (3.5-5.1); SODIUM 135 mmol/L (136-145)
[2018-05-26 08:08] VITALS: BP 141/86
[2018-05-26] MEDS: INSULIN DETEMIR 100 UNIT/ML PEN SQ SCH ×2 (09:00→22:23)
[2018-05-26] MEDS: GABAPENTIN 300 MG CAP PO SCH ×3 (09:58→22:14)
[2018-05-26 12:23] VITALS: BP 132/78
[2018-05-26 20:00] VITALS: BP 186/82
[2018-05-26] MEDS ORDERED: LISINOPRIL 10 MG TAB PO SCH (21:00)
[2018-05-26] MEDS: LISINOPRIL 20 MG TAB PO SCH (22:16)
[2018-05-27] VITALS (9 sets, daily range): BP systolic 132–191; BP diastolic 61–88
[2018-05-27] MEDS: MEROPENEM 1GM 100 ML IV SCH ×3 (05:53→21:01)
[2018-05-27] MEDS ORDERED: HYDRALAZINE HCL 20 MG/ML VIAL IV PRN (07:00)
[2018-05-27] MEDS: GABAPENTIN 300 MG CAP PO SCH ×3 (07:35→20:59)
[2018-05-27] MEDS: BENZONATATE 100 MG CAP PO SCH ×3 (07:35→21:00)
[2018-05-27] MEDS: INSULIN LISPRO 100 UNIT/1 ML 3ML VIAL SQ SCH ×4 (07:37→21:02)
[2018-05-27] MEDS: INSULIN DETEMIR 100 UNIT/ML PEN SQ SCH ×2 (07:38→21:03)
[2018-05-27] MEDS: GUAIFENESIN/DEXTROMETHORPHAN LIQD 5 ML UDC PO PRN (11:43)
--- NOTE | 2018-05-27 12:43 | Progress Note ---
DATE: May 27, 2018 CARDIOLOGY PROGRESS NOTE SUBJECTIVE: No major events overnight. Feels back to normal. OBJECTIVE VITAL SIGNS: Temperature 98.8, pulse 79, respiratory rate 20, blood pressure 132/61, satting 97% on room air. GENERAL: White female in no acute distress. Well developed, well nourished. CARDIOVASCULAR: Regular rate and rhythm. A 2/6 systolic murmur, right upper sternal border. Palpable carotid pulses. Palpable radial pulses. LUNGS: Clear to auscultation bilaterally. No respiratory distress. ABDOMEN: Soft, nontender, nondistended. No masses. NEURO AND PSYCH: Alert and oriented to person, place and time. Normal affect. INPATIENT MEDICATIONS: Reviewed. TELEMETRY DATA: Reviewed, shows normal sinus rhythm. LABORATORY DATA: Reviewed. ASSESSMENT AND PLAN 1. Cardiac murmur. 2. Bacteremia. 3. Hypertension. 4. Abnormal liver function tests. PLAN: Echocardiogram was reviewed. Essentially shows normal LV function and no significant valvular abnormalities. No vegetations are seen. No further workup is needed from a cardiovascular standpoint. Continue current medical therapy. Thank you for this consult. Will continue to follow. Job#: [id number]
--- NOTE | 2018-05-27 14:51 | Progress Note ---
DATE: May 27, 2018 INFECTIOUS DISEASE PROGRESS NOTE SUBJECTIVE: Ms. Fleming is doing better. No new complaint. REVIEW OF SYSTEMS HEENT: Negative. PULMONARY: Negative. CARDIAC: Negative. GI: Negative. SKIN: There is no rash. PHYSICAL EXAMINATION GENERAL: She is currently alert, oriented, does not seem to be in acute distress. VITAL SIGNS: Stable. Currently afebrile. HEENT: She does not appear icteric. NECK: Supple. CHEST: Clear. HEART: S1/S2. No S3, no S4. No murmur. ABDOMEN: Soft. Bowel sounds present. No tenderness. EXTREMITIES: There is no edema. SKIN: No rash. IMPRESSION 1. Escherichia coli bacteremia extended-spectrum beta-lactamase. The plan is to finish 14 days of IV meropenem. We are working on discharging her with IV antibiotic as an outpatient. 2. History of heart murmur. 3. Anemia of chronic disease. The hemoglobin is 7.5 today, and that is per Internal Medicine. 4. Diabetes. Will follow. Job#: [id number] VANESSA
[2018-05-27] MEDS: LISINOPRIL 20 MG TAB PO SCH (21:00)
[2018-05-28] VITALS (7 sets, daily range): BP systolic 144–160; BP diastolic 65–84
[2018-05-28] MEDS: MEROPENEM 1GM 100 ML IV SCH ×3 (05:58→21:52)
[2018-05-28 06:46] LABS: BASOPHILS # (AUTO) 0.1 (0.0-0.1); BASOPHILS % 1.3 % (0.0-1.0); EOSINOPHILS # (AUTO) 0.3 (0.0-0.4); EOSINOPHILS % 5.4 % (0.0-6.0); HEMATOCRIT 25.5 % (34.2-44.1); LYMPHOCYTES # (AUTO) 2.2 (1.0-3.2); LYMPHOCYTES % 39.5 % (18.0-39.1); MEAN CORPUSCULAR HEMOGLOBIN 26.5 pg (28-32); MEAN CORPUSCULAR HGB CONC 31.4 g/dL (31-35); MEAN CORPUSCULAR VOLUME 84.4 fL (81-99); MONOCYTES # (AUTO) 0.7 (0.2-0.8); MONOCYTES % 11.9 % (4.4-11.3); NEUTROPHILS # (AUTO) 2.3 (2.1-6.9); NEUTROPHILS % 41.5 % (38.7-80.0); PLATELET COUNT 332 x10e3/uL (140-360); RED BLOOD COUNT 3.02 x10e6/uL (3.6-5.1); RED CELL DISTRIBUTION WIDTH 18.9 % (11.7-14.4)
[2018-05-28 07:01] LABS: ALANINE AMINOTRANSFERASE 45 IU/L (0-55); ALBUMIN 2.4 g/dL (3.5-5.0); ALBUMIN/GLOBULIN RATIO 0.5 (0.8-2.0); ALKALINE PHOSPHATASE 225 IU/L (40-150); ANION GAP 10.1 mmol/L (8-16); BLOOD UREA NITROGEN 16 mg/dL (7-26); BUN/CREATININE RATIO 24 (6-25); CALCIUM 9.7 mg/dL (8.4-10.2); CARBON DIOXIDE 30 mmol/L (22-29); CHLORIDE 101 mmol/L (98-107); CREATININE, SERUM 0.66 mg/dL (0.57-1.11); EST GLOMERULAR FILTRATION RATE > 60 ML/MIN (60-); GLUCOSE 171 mg/dL (74-118); POTASSIUM 4.1 mmol/L (3.5-5.1); SODIUM 137 mmol/L (136-145)
[2018-05-28 07:42] LABS: EOSINOPHILS % (MANUAL) 2 % (0-7); LYMPHOCYTES % (MANUAL) 41 % (19-48); MONOCYTES % (MANUAL) 7 % (3.4-9.0); NEUTROPHILS % (MANUAL) 48 % (40-74); PLATELET ESTIMATE ADEQUATE; PLATELET MORPHOLOGY COMMENT NORMAL; RBC MORPHOLOGY COMMENT NORMAL
[2018-05-28] MEDS: BENZONATATE 100 MG CAP PO SCH ×3 (08:37→21:50)
[2018-05-28] MEDS: GABAPENTIN 300 MG CAP PO SCH ×3 (08:37→21:50)
[2018-05-28] MEDS: INSULIN LISPRO 100 UNIT/1 ML 3ML VIAL SQ SCH ×4 (08:37→21:51)
[2018-05-28] MEDS: INSULIN DETEMIR 100 UNIT/ML PEN SQ SCH ×2 (08:38→21:52)
[2018-05-28] MEDS: GUAIFENESIN/DEXTROMETHORPHAN LIQD 5 ML UDC PO PRN ×2 (08:38→16:55)
--- NOTE | 2018-05-28 14:38 | Progress Note ---
DATE: May 28, 2018 CARDIOLOGY PROGRESS NOTE SUBJECTIVE: No major events overnight. OBJECTIVE VITAL SIGNS: Temperature 96.9, pulse 80, respiratory rate 18, blood pressure 154/84, sating 96% on room air. GENERAL: White female, no acute distress, well developed. CARDIOVASCULAR: Regular rate and rhythm, 2/6 systolic murmur, right upper sternal border. Palpable carotid pulses. Palpable radial pulses. LUNGS: Clear to auscultation bilaterally. No respiratory distress. ABDOMEN: Soft, nontender, nondistended. NEURO AND PSYCH: Alert and oriented to person, place, and time. Normal affect. INPATIENT MEDICATIONS: Reviewed. LABORATORY DATA: Reviewed. IMAGING DATA: Reviewed. ASSESSMENT AND PLAN 1. Cardiac murmur. 2. Bacteremia. 3. Hypertension. 4. Abnormal liver function tests. PLAN: Continue lisinopril for hypertension. Echocardiogram did not show any signs of vegetations, bacteremia since resolved. No further cardiovascular workup needed at this time. We will continue to follow. Thank you for this consult. Job#: [id number] SUB
[2018-05-28] MEDS: LISINOPRIL 20 MG TAB PO SCH (21:50)
[2018-05-29] VITALS: BP 141/63
[2018-05-29 04:00] VITALS: BP 142/67
[2018-05-29] MEDS: MEROPENEM 1GM 100 ML IV SCH ×2 (06:39→14:00)
[2018-05-29] MEDS: INSULIN LISPRO 100 UNIT/1 ML 3ML VIAL SQ SCH ×4 (07:30→21:00)
[2018-05-29] MEDS ORDERED: FUROSEMIDE INJ 10 MG/ML 2 ML VIAL IV ONE (07:45)
[2018-05-29 08:00] VITALS: BP 160/70
[2018-05-29] MEDS: GUAIFENESIN/DEXTROMETHORPHAN LIQD 5 ML UDC PO PRN (08:34)
[2018-05-29] MEDS: BENZONATATE 100 MG CAP PO SCH ×3 (08:34→20:09)
[2018-05-29] MEDS: GABAPENTIN 300 MG CAP PO SCH ×3 (08:34→20:08)
[2018-05-29] MEDS: INSULIN DETEMIR 100 UNIT/ML PEN SQ SCH ×2 (10:06→21:00)
[2018-05-29 12:00] VITALS: BP 163/72
[2018-05-29 16:00] VITALS: BP 111/56
[2018-05-29 20:00] VITALS: BP 128/75
[2018-05-29] MEDS: LISINOPRIL 20 MG TAB PO SCH (20:08)
[2018-05-30] VITALS (8 sets, daily range): BP systolic 105–136; BP diastolic 55–92
[2018-05-30] MEDS: INSULIN DETEMIR 100 UNIT/ML PEN SQ SCH ×2 (08:25→20:16)
[2018-05-30] MEDS: INSULIN LISPRO 100 UNIT/1 ML 3ML VIAL SQ SCH ×5 (08:25→20:16)
[2018-05-30] MEDS: GABAPENTIN 300 MG CAP PO SCH ×3 (08:28→20:15)
[2018-05-30] MEDS: BENZONATATE 100 MG CAP PO SCH ×3 (08:28→20:15)
[2018-05-30] MEDS ORDERED: MEROPENEM 1GM 100 ML IV SCH ×2 (10:15→14:00)
[2018-05-30] MEDS ORDERED: SODIUM CHLORIDE 0.9% 250ML 250 ML ONE (10:38)
[2018-05-30] MEDS: MEROPENEM 1GM 100 ML IV SCH ×2 (10:44→18:46)
--- NOTE | 2018-05-30 15:12 | Progress Note ---
DATE: May 30, 2018 CARDIOLOGY PROGRESS NOTE SUBJECTIVE: No complaints. No chest pain. No shortness of breath. No events. OBJECTIVE VITAL SIGNS: Temperature is 97.5, heart rate is 81, respirations are 20, blood pressure is 125/70, oxygen saturation is 97% on room air. GENERAL: Well-appearing and in no apparent distress. CARDIOVASCULAR: Regular rate and rhythm. Mild systolic murmur heard best at the right upper sternal border. LUNGS: Clear to auscultation. ABDOMEN: Soft and nontender. EXTREMITIES: No edema. VASCULAR: Two plus pulses. NEUROLOGIC: No focal deficits noted. LABORATORY DATA: Reviewed. IMAGING AND TELEMETRY MONITORING: Was reviewed. IMPRESSION 1. Bacteremia. 2. Hypertension. 3. Abnormal liver function tests. RECOMMENDATIONS: Continue lisinopril for afterload reduction. The patient's blood pressure is well controlled. Echocardiogram was normal. Did not show any significant valvular abnormalities or vegetations. Continue current cardiovascular medications otherwise. No further testing is required. Job#: [id number] VERONICA
[2018-05-30] MEDS: LISINOPRIL 20 MG TAB PO SCH (20:15)
[2018-05-31] VITALS (8 sets, daily range): BP systolic 107–172; BP diastolic 52–78
[2018-05-31] MEDS: MEROPENEM 1GM 100 ML IV SCH ×3 (02:00→18:44)
[2018-05-31] MEDS: INSULIN DETEMIR 100 UNIT/ML PEN SQ SCH ×2 (08:40→20:38)
[2018-05-31] MEDS: INSULIN LISPRO 100 UNIT/1 ML 3ML VIAL SQ SCH ×7 (08:40→20:38)
[2018-05-31] MEDS: BENZONATATE 100 MG CAP PO SCH ×3 (08:41→20:37)
[2018-05-31] MEDS: GABAPENTIN 300 MG CAP PO SCH ×3 (08:41→20:37)
--- NOTE | 2018-05-31 16:56 | Progress Note ---
DATE: May 31, 2018 CARDIOLOGY PROGRESS NOTE SUBJECTIVE: The patient overall is feeling well. Denies any chest pain or shortness of breath. OBJECTIVE VITAL SIGNS: Temperature 96.9, heart rate 83, respirations 18, blood pressure 171/72, oxygen saturation 100% on room air. GENERAL: Well appearing and in no apparent distress. CARDIOVASCULAR: Regular rate and rhythm. Normal S1 and S2. LUNGS: Clear to auscultation. ABDOMEN: Soft and nontender. EXTREMITIES: No edema. NEUROLOGIC: No focal deficits noted. MEDICATIONS, LABORATORY DATA, AND IMAGING: Reviewed. TELEMETRY: Monitoring not reviewed. IMPRESSION 1. Bacteremia. 2. Hypertension. 3. Abnormal liver function test. RECOMMENDATIONS: Continue the lisinopril for blood pressure control and can increase this if needed. Echocardiogram was within normal limits. Continue current treatment plan. No further cardiovascular testing is needed. Job#: [id number]
[2018-05-31] MEDS: LISINOPRIL 20 MG TAB PO SCH (20:37)
[2018-06-01] VITALS (7 sets, daily range): BP systolic 101–126; BP diastolic 56–69
[2018-06-01] MEDS: MEROPENEM 1GM 100 ML IV SCH ×3 (01:39→17:18)
[2018-06-01] MEDS: BENZONATATE 100 MG CAP PO SCH ×3 (08:08→21:00)
[2018-06-01] MEDS: GABAPENTIN 300 MG CAP PO SCH ×3 (08:08→21:00)
[2018-06-01] MEDS: INSULIN LISPRO 100 UNIT/1 ML 3ML VIAL SQ SCH ×7 (08:08→21:00)
[2018-06-01] MEDS: INSULIN DETEMIR 100 UNIT/ML PEN SQ SCH ×2 (08:09→21:00)
[2018-06-01] MEDS: GUAIFENESIN/DEXTROMETHORPHAN LIQD 5 ML UDC PO PRN (08:09)
[2018-06-01] MEDS: LISINOPRIL 20 MG TAB PO SCH (21:00)
[2018-06-02] VITALS: BP 129/64
[2018-06-02] MEDS: MEROPENEM 1GM 100 ML IV SCH ×3 (02:00→17:20)
[2018-06-02 04:00] VITALS: BP 123/74
[2018-06-02 08:00] VITALS: BP 135/73
[2018-06-02 08:30] VITALS: BP 135/73
[2018-06-02] MEDS: GABAPENTIN 300 MG CAP PO SCH ×2 (08:31→17:20)
[2018-06-02] MEDS: INSULIN LISPRO 100 UNIT/1 ML 3ML VIAL SQ SCH ×6 (08:31→17:21)
[2018-06-02] MEDS: BENZONATATE 100 MG CAP PO SCH ×2 (08:31→17:20)
[2018-06-02] MEDS: INSULIN DETEMIR 100 UNIT/ML PEN SQ SCH (08:32)
[2018-06-02] MEDS: GUAIFENESIN/DEXTROMETHORPHAN LIQD 5 ML UDC PO PRN (08:32)
[2018-06-02 12:00] VITALS: BP 142/65
[2018-06-02 15:56] VITALS: BP 112/75
[2018-06-02] MEDS ORDERED: MERREM1 GM IV (17:43)
== END 2018-06-02 18:30 | disposition home or self-care (01) | DRG 872 ==
LOC: ER 17:59 → ERHOLD 21:29 → MED/SURG3 22:21
PROVIDERS: ADMIT Internal Medicine; ATTEND Internal Medicine
PROC: 02HV33Z Insertion of Infusion Device into Superior Vena Cava, Percutaneous Approach (ICD-10-PCS; principal; 2018-05-25)
DX: A41.51 Sepsis due to Escherichia coli [E. coli] (principal); N12 Tubulo-interstitial nephritis, not specified as acute or chronic; E11.9 Type 2 diabetes mellitus without complications; I10 Essential (primary) hypertension; Z16.12 Extended spectrum beta lactamase (ESBL) resistance; Z79.4 Long term (current) use of insulin; R01.1 Cardiac murmur, unspecified; Z87.01 Personal history of pneumonia (recurrent); D64.9 Anemia, unspecified; S30.1XXA Contusion of abdominal wall, initial encounter; R94.5 Abnormal results of liver function studies; D63.8 Anemia in other chronic diseases classified elsewhere
CPT/HCPCS: 36415; 36569; 71045; 71046; 74176; 80053; 81001; 82150; 82948; 83605; 83690; 83735; 84702; 85025; 85610; 85730; 87040; 87071; 87086; 87186; 87205; 93306; 99284; J0696; J1940; J2185; J2405; J7030; J7050